=== PATIENT | female | born 1955 | race Caucasian/White ===

== ENCOUNTER → 2024-11-02 | Outpatient (CLI) | payer MEDICARE, OTHER ==
--- NOTE | 2024-11-02 16:15 | PE ---
EXAMINATION TYPE: PET CT fusion skull to thigh DATE OF EXAM: 11/02/2024 CLINICAL HISTORY: Abnormal findings lung field, solitary pulmonary nodule. TECHNIQUE: Following the intravenous administration of 12.2 mCi of F-18 FDG, whole body images are performed from the skull base to the midthigh. Images are reviewed on the computer in the coronal, a xial, and sagittal planes. Reconstructed rotating images are created on independent workstation and reviewed on the computer. A non-contrast CT is performed in conjunction with the PET scan. Blood gl ucose level equals 87 Initial study. COMPARISON: None. FINDINGS: SKULL BASE AND NECK: No areas of abnormal hypermetabolic uptake. CHEST, MEDIASTINUM, AND HILAR REGION: There is 1.1 cm spiculated nodule or nodular consolidation with a central focus of air in the right upper lobe axial image 70 with abnormal hypermetabolic uptake, m ax SUV is 8.3. No additional areas of abnormal hypermetabolic uptake. ABDOMEN AND PELVIS: Normal excretion is present. No areas of suspicious hypermetabolic uptake. No hyp ermetabolic adrenal masses. OSSEOUS STRUCTURES: No areas of suspicious abnormal hypermetabolic uptake. OTHER CT: [id number] peripheral calcified plaque bilateral carotid bulb level is seen. Coronary artery calcification is present. There is moderate to severe calcified plaque of the infrarenal abdominal aorta. There is moderate deg enerative change of both hip joints. IMPRESSION: There is 1.1 cm spiculated nodule or nodular consolidation with central tiny focus of air with abnormal hypermetabolic uptake could reflect acute infectious process but a malignant etiology cannot be excluded. Advise clinical correlation and pulmonology referral to further evaluate. [facility], , 11/02/2024 4:12 PM
== END | disposition home or self-care (01) ==
LOC: RADPETMAIN 09:01
PROVIDERS: ATTEND Family Medicine
DX: R91.8 Other nonspecific abnormal finding of lung field (principal)
CPT/HCPCS: 78815; A9552

== ENCOUNTER → 2024-11-16 | Outpatient (CLI) | payer MEDICARE, OTHER ==
--- NOTE | 2024-11-16 12:43 | MM ---
Reason for Exam: Screening (asymptomatic). Indicated Problems: Pain of the left side (Global) for 1 Year(s). Patient History: Menarche at age 14. First Full-Term at age 22. Postmenopausal. Risk Values: Maryanne 5 year model risk: 1.5%. NCI Lifetime model risk: 5.0%. Prior Study Comparison: No prior studies available for comparison. Tissue Density: The breasts are heterogeneously dense, which may obscure small masses. Findings: Analyzed By CAD. No significant mass, suspicious microcalcification, or other discrete abnormality is seen. Overall Assessment: Negative, BI-RAD 1 Management: Screening Mammogram of both breasts in 1 year. Patient should continue monthly self-breast exams. A clinical breast exam by your physician is recommended on an annual basis. This exam should not preclude additional follow-up of suspicious palpable abnormalities. Note on Maryanne scores and lifetime risk: 1. A Maryanne score greater than 3% is considered moderate risk. If this is the case, consider specialist referral to assess eligibility for a risk reducing agent. 2. If overall lifetime risk for the development of breast cancer is 20% or higher, the patient may qualify for future screening with alternating mammogram and breast MRI. [facility], , 11/16/2024 12:40 PM. Electronically signed and approved by: Uyen Wells M.D. Radiologist
== END | disposition home or self-care (01) ==
LOC: RADMAMWWP 10:17
PROVIDERS: ATTEND Family Medicine
DX: Z12.31 Encounter for screening mammogram for malignant neoplasm of breast (principal); R92.333 Mammographic heterogeneous density, bilateral breasts; Z78.0 Asymptomatic menopausal state
CPT/HCPCS: 77063; 77067

== ENCOUNTER 2025-02-28 10:50 | Day surgery (SDC) | payer MEDICARE, OTHER ==
[2025-02-27 09:22] VITALS: BMI 28.3
[~2025-02-28 10:50] MED LIST: LACTATED RINGERS 1,000 ML IV SCH
[2025-02-28] MEDS: IV FLUID CONTINUATION 1,000 ML IV ONE (11:45)
--- NOTE | 2025-02-28 11:53 | CT ---
EXAMINATION TYPE: CT Chest wo ION protocol DATE OF EXAM: 02/28/2025 COMPARISON: PET CT 11/02/2024, chest radiograph 02/13/2025, CT thorax 02/05/2025 CLINICAL INDICATION: Female, 69 years old with history of ION BRONCH; [facility], Pre bronchoscopy TECHNIQUE: CT scan of the thorax is performed without IV contrast. CT DLP: 240.[address] CTDI: 6.40 mGy Automated exposure control for dose reduction was used. FINDINGS: LUNGS: Biapical pleural-parenchymal scarring. Redemonstration of right upper lobe cavitary spiculated lesion measuring up to 1.4 cm. The wall measures up to 2 mm in thickness. Marginal increased cavitar y portion of the lesion from prior exam. No pleural effusion, pneumothorax, focal consolidation. The tracheobronchial tree is patent. MEDIASTINUM: Lack of IV contrast is noted to limit evaluation for mediastinal and especially hilar ad enopathy. There are no definitive greater than 1 cm hilar or mediastinal lymph nodes. Mild to moderat e atherosclerotic calcification of the aorta and its branches. HEART: Size within normal limits.Trace anterior pericardial effusion. Mild coronary artery calcificat ions present. OTHER: No additional significant abnormality is seen. Mild multilevel degenerative disease. No aggre ssive osseous lesion. Small hiatal hernia. IMPRESSION: Redemonstration of a right upper lobe spiculated cavitary lesion measuring up to 1.4 cm. [facility], , 02/28/2025 11:51 AM
[2025-02-28] MEDS: ONDANSETRON 4 MG/2 ML VIAL IVP STA (11:58)
[2025-02-28] MEDS: LACTATED RINGERS 1,000 ML IV SCH (11:58)
[2025-02-28] MEDS: DEXAMETHASONE SOD PHOSPHATE 4 MG/ML 1 ML VIAL IVP STA (11:59)
[2025-02-28] MEDS ORDERED: PROPOFOL 10 MG/ML 20 ML VIAL IV ONE (12:46)
[2025-02-28] MEDS ORDERED: SUCCINYLCHOLINE CHLORIDE 200 MG/10 ML VIAL IV ONE (12:46)
[2025-02-28] MEDS ORDERED: ROCURONIUM 10 MG/ML (5 ML VIAL) IV ONE (12:46)
[2025-02-28] MEDS ORDERED: PHENYLEPHRINE 10 MG/ML VIAL ONE (12:46)
[2025-02-28] MEDS ORDERED: LIDOCAINE 1% INJ 10MG/ML (20 ML MDV) ONE (12:46)
[2025-02-28] MEDS ORDERED: fentaNYL (PF) 50 MCG/ML 2 ML AMP ONE (12:46)
[2025-02-28] MEDS ORDERED: GLYCOPYRROLATE 0.2 MG/ML 2 ML VIAL ONE (12:46)
[2025-02-28] MEDS ORDERED: NEOSTIGMINE 1 MG/ML 10 ML VIAL ONE (12:46)
--- NOTE | 2025-02-28 13:44 | FL ---
EXAMINATION TYPE: FL bronchoscopy Intraoperative/procedural fluoroscopic services were provided. CLINICAL INDICATION:Female, 69 years old with history of BRONCHOSCOPY WITH ION ROBOT; , [facility] FINDINGS: Fluoroscopic imaging for right upper lung bronchoscopy demonstrated. No radiographic evidence for com plication. Total fluoroscopy time is 1.00 min. DAP: 1.9872 Gycm2 Please see the operative/procedural note for further details. [facility], , 02/28/2025 1:42 PM
--- NOTE | 2025-02-28 13:53 | P.PCN ---
Date of Procedure: 02/28/25 Operative Findings: Preoperative Diagnosis: Right upper lobe pulmonary nodule measuring 14 mm cacitating nodule, PET Avid Postoperative Diagnosis: Right upper lobe pulmonary nodule 14 mm Procedure(s) Performed: Flexible bronchoscopy Robotic-assisted bronchoscopy and addition to radial ultrasound evaluation of right upper lobe pulmonary nodule Robotic-assisted transbronchial biopsies, transbronchial needle aspirate of the right upper lobe pulmonary nodule Robotic assisted bronchioloalveolar lavage of the of the right upper lobe Endobronchial ultrasound Anesthesia: GETA Surgeon: Juanis Virk Estimated Blood Loss (ml): 0 Pathology: other Condition: stable Disposition: same day Operative Findings: A physical exam was performed. Informed consent was obtained from the patient after explaining all the risks (pneumothorax, life threatening bleeding, infection and adverse effects due to medications), benefits and alternatives to the procedure which the patient appeared to understand and so stated. The patient was connected to the monitoring devices. General anesthesia was induced and the patient was intubated by anesthesia. A final timeout was performed and the procedure confirmed by the attending staff bronchoscopist. The bronchoscope was inserted and the airway examined. The trachea was within normal limits. Kathryn was sharp. Examination of the right side included right mainstem bronchus, the right upper lobe bronchus, bronchus intermedius, right middle lobe and right lower lobe bronchus and the various 10 segments on the right. The findings on the right were essentially within normal limits. Examination of the left side showed a normal left mainstem bronchus. The left upper lobe bronchus and left lower lobe bronchus and the various 8 segments on the left were essentially within normal limits. The flexible bronchoscope was removed and the robotic bronchoscope was inserted. Registration was completed. I next guided the robotic bronchoscope using the navigation system into the right upper lobe. Once in proper position, the bronchoscope was frozen. The radial EBUS probe was placed through the bronchoscope and confirmed abnormal u/s images vs normal lung. U/S evaluation was then used to reconfirm location. A transbronchial needle aspirate of the right upper lobe nodule was done using a 23-gauge needle. Initially, 2 passes were taken and the samples were examined and evaluated by pathology at the bedside. Following this rapid onsite cytology evaluation and confirmation of sample adequacy, 3 additional transbronchial needle aspirates were done and no samples was placed in the cellblock. Following that, a forceps was used to perform transbronchial biopsies of the right upper lobe pulmonary nodule. A forceps was introduced through working channel and extended the appropriate distance and to transbronchial biopsies were performed using fluoroscopic guidance. The u/s probe was then reinserted to confirm location. When confirmed this process was repeated for a total of 5- 6 transbronchial biopsies. Following that, a bronchioloalveolar lavage of the right upper lobe was also done. A total of 40 cc of fluid was infused and 10 cc was aspirated and the aspirate was blood tinged. No clots. Fluoroscopic check for pneumothorax was negative upon completion of the procedure. There was 0 ml blood loss with the procedure. The robotic catheter was removed. The flexible bronchoscope was inserted. Therapeutic airway suctioning was done. There was no evidence of an endobronchial bleed. The flexible bronchoscope was removed. Endobronchial ultrasound was used to evaluate for mediastinal lymphadenopathy. No significant or pathologic lymph nodes identified upon inspection of various mediastinal space including 2R , 4R, 2L, 4L, 10R, 11R, and station 7 and 10L. The patient was extubated and the patient was transferred to recovery in stable condition. FINDINGS: 1.The airways appeared normal, no significant respiratory secretions 2 Successful navigation, ultrasonographic identification, and biopsies of right upper lobe pulmonary nodule 3.The the radial ultrasound view was eccentric 4. No mediastinal lymphadenopathy based on a endobronchial ultrasound evaluation of the mediastinal stations. RECOMMENDATIONS: Await pathology and cytology results The referring physician will be alerted to the results when available. The patient was advised to follow up with the referring physician with the biopsy results
[2025-02-28 14:01] VITALS: TEMP 97.3
--- NOTE | 2025-02-28 14:20 | XR ---
EXAMINATION TYPE: XR chest 1V DATE OF EXAM: 02/28/2025 2:14 PM COMPARISON: Fluoroscopic images of the same day, CT chest of the same date, chest radiograph TECHNIQUE: XR chest 1V Portable AP radiograph of the chest. CLINICAL INDICATION:Female, 69 years old with history of post bx; FINDINGS: Lungs/Pleura: No pneumothorax or pleural effusion. Development of right upper lung patchy airspace op acities. Pulmonary vascularity: Unremarkable. Heart/mediastinum: Cardiomediastinal silhouette is unremarkable. Atherosclerotic calcifications are seen in the aorta. Musculoskeletal: No acute osseous pathology. IMPRESSION: Development of right upper lung patchy airspace opacities likely related to postbiopsy changes from s mall hemorrhage/atelectasis. No pneumothorax. [facility], , 02/28/2025 2:18 PM
[2025-02-28 15:11] VITALS: BP 124/67; PULSE 65; RESP 18
== END 2025-02-28 15:25 | disposition home or self-care (01) ==
LOC: ORWHC2ENDO 10:50
PROVIDERS: ATTEND Internal Medicine Critical Care Medicine
DX: R91.1 Solitary pulmonary nodule (principal); J44.9 Chronic obstructive pulmonary disease, unspecified; I10 Essential (primary) hypertension; E78.5 Hyperlipidemia, unspecified; R56.9 Unspecified convulsions; K21.9 Gastro-esophageal reflux disease without esophagitis; G43.C0 Periodic headache syndromes in child or adult, not intractable; Z79.899 Other long term (current) drug therapy; Z87.891 Personal history of nicotine dependence; Z80.1 Family history of malignant neoplasm of trachea, bronchus and lung
CPT/HCPCS: 87798 ×3; 87496; 87498; 87529; 88108; 88305; 88342; 87502; 87634; 88341; 87070; 87205; 87116; 87102; 87206; 87635; 71045; 71250; 31628; 31629; 31624; 31627; 31654; J0330; J1100; J2710; J2405; J2003; J3010; J2704; J2371; J1596

== ENCOUNTER → 2025-04-18 | Outpatient (CLI) | payer MEDICARE, OTHER ==
[2025-04-18 10:39] LABS: INR 0.9 (<1.2); Partial Thromboplastin Time 22.3 sec (22.0-30.0); Prothrombin Time 10.5 sec (10.0-12.5)
[2025-04-18 15:07] LABS: Basophils # (A) 0.11 X 10*3/uL (0.00-0.10); Basophils % (A) 0.9 %; Eosinophils % (A) 2.5 %; HGB 13.8 g/dL (12.0-15.0); Lymphocytes # (A) 3.66 X 10*3/uL (0.90-5.00); Lymphocytes % (A) 30.2 %; MCH 30.3 pg (27.0-32.0); MCHC 32.9 g/dL (32.0-37.0); MCV 92.1 FL (80.0-97.0); Mean Platelet Volume 9.9 FL (9.5-12.2); Monocytes # (A) 0.84 X 10*3/uL (0.20-1.00); Monocytes % (A) 6.9 %; NRBC Per 100 WBC 0 X 10*3/uL (0.00-0.01); Neutrophils # (A) 7.13 X 10*3/uL (1.80-7.70); Platelet Count 319 X 10*3/uL (140-440); RBC 4.56 X 10*6/uL (4.10-5.20)
[2025-04-18 15:27] LABS: Blood Urea Nitrogen 11.7 mg/dL (9.0-27.0); Carbon Dioxide 25.4 mmol/L (21.6-31.8); Chloride 105 mmol/L (96-109); Glucose 106 mg/dL (70-110); Potassium 4.6 mmol/L (3.5-5.5); Sodium 142 mmol/L (135-145)
[2025-04-19 15:50] LABS: Appearance,Urine Clear (Clear); Bilirubin,Urine Negative (Negative); Blood,Urine Negative (Negative); Color,Urine Yellow (Yellow); Ketones,Urine Negative (Negative); Nitrite,Urine Negative (Negative); PH, Urine 7.5; Specific Gravity,Urine 1.012 (1.001-1.030); Urobilinogen,Urine 0.2 E.U./DL
== END | disposition home or self-care (01) ==
LOC: LABWHC1 09:57
PROVIDERS: ATTEND Thoracic Surgery (Cardiothoracic Vascular Surgery)
DX: C34.11 Malignant neoplasm of upper lobe, right bronchus or lung (principal)
CPT/HCPCS: 80051; 81003; 82565; 82947; 84520; 85025; 85610; 85730; 86850; 86900; 86901; 87086

== ENCOUNTER 2025-04-23 07:30 | Inpatient (IN) | payer MEDICARE, OTHER ==
[~2025-04-23 07:30] MED LIST changes: +HYDROmorphone 0.5 MG/0.5 ML SYRINGE IVP PRN; -LACTATED RINGERS 1,000 ML IV SCH; +fentaNYL (PF) 50 MCG/ML 2 ML AMP IV PRN
[2025-04-23] MEDS: ONDANSETRON 4 MG/2 ML VIAL IVP ONE (10:52)
[2025-04-23] MEDS: IV FLUID CONTINUATION 1,000 ML IV ONE ×2 (11:05)
[2025-04-23 11:15] LABS: Glucose,Whole Blood 108 mg/dL (70-110)
[2025-04-23] MEDS: MIDAZOLAM 2 MG/2 ML VIAL IV ONE (12:06)
--- NOTE | 2025-04-23 13:47 | P.ANPRN ---
Procedure Note - Anesthesia - Nerve Block Performed Right Erector Spinae Single Time Out Performed: Yes Date of Procedure: 04/23/25 Procedure Start Time: 12:05 Procedure Stop Time: 12:12 Location of Patient: PreOp Indication: Acute Post-Operative Pain, Requested by Surgeon Sedation Type: Sedate with meaningful contact maintained Preparation: Sterile Prep Position: Sitting Needle Types: Pajunk Needle Gauge: 21 Ultrasound used to visualize needle placement: Yes Ultrasound used to observe medication spread: Yes Injectate: 0.5% Ropivacaine (see comment for volume) (20 mL +10 mL of normal saline +4 mg dexamethasone) Blood Aspirated: No Pain Paresthesia on Injection Noted: No Resistance on Injection: Normal Image Stored and Saved: Yes Events: Uneventful and Well Tolerated
[2025-04-23] MEDS: BUPIVACAINE (PF) 0.25% 30 ML VIAL SQ ONE ×2 (14:09)
[2025-04-23] MEDS: LIDOCAINE 1%-EPI 1:100,000 20 ML VIAL SQ ONE ×2 (14:10)
[2025-04-23] MEDS: LACTATED RINGERS 1,000 ML IV ONE (14:50)
[2025-04-23] MEDS ORDERED: GLYCOPYRROLATE 0.2 MG/ML 2 ML VIAL ONE (14:57)
[2025-04-23] MEDS ORDERED: DEXAMETHASONE SOD PHOSPHATE 4 MG/ML 1 ML VIAL ONE (14:57)
[2025-04-23] MEDS ORDERED: NEOSTIGMINE 1 MG/ML 10 ML VIAL ONE (14:57)
[2025-04-23] MEDS ORDERED: ROPIVACAINE 5 MG/ML 30 ML VIAL ONE (14:57)
[2025-04-23] MEDS ORDERED: PROPOFOL 10 MG/ML 20 ML VIAL IV ONE (14:57)
[2025-04-23] MEDS ORDERED: HYDROmorphone (PF) 1 MG/ML ONE (14:57)
[2025-04-23] MEDS ORDERED: LIDOCAINE 1% INJ 10MG/ML (20 ML MDV) ONE (14:57)
[2025-04-23] MEDS ORDERED: ROCURONIUM 10 MG/ML (5 ML VIAL) IV ONE (14:57)
[2025-04-23] MEDS ORDERED: DEXAMETHASONE SOD PHOSPHATE 10 MG/ML 1 ML VIAL ONE (14:57)
[2025-04-23] MEDS ORDERED: ONDANSETRON 4 MG/2 ML VIAL ONE (14:57)
[2025-04-23] MEDS ORDERED: ACETAMINOPHEN IV (For NPO) 1,000 MG/100 ML VIAL ONE (14:57)
[2025-04-23] MEDS ORDERED: MIDAZOLAM 2 MG/2 ML VIAL ONE (14:57)
[2025-04-23] MEDS ORDERED: fentaNYL (PF) 50 MCG/ML 2 ML AMP ONE (14:57)
[2025-04-23] MEDS ORDERED: KETAMINE HCL IN 0.9 % NACL 50 MG/5 ML SYRINGE ONE (14:57)
[2025-04-23] MEDS ORDERED: SODIUM CHLORIDE 0.9% (PF) 10 ML VIAL ONE (14:57)
[2025-04-23] MEDS ORDERED: ALBUTEROL HFA INHALER INHALATION ONE (14:57)
[2025-04-23] MEDS ORDERED: PHENYLEPHRINE-0.9% NACL SYG 1,000 MCG/10 ML SYRINGE ONE (14:57)
[2025-04-23] MEDS ORDERED: LABETALOL 5 MG/ML VIAL MDV ONE (14:57)
[2025-04-23] MEDS ORDERED: SUCCINYLCHOLINE CHLORIDE 200 MG/10 ML VIAL IV ONE (14:57)
--- NOTE | 2025-04-23 17:43 | XR ---
EXAMINATION TYPE: XR chest 1V portable DATE OF EXAM: 04/23/2025 5:30 PM COMPARISON: 02/28/2025 CLINICAL INDICATION: Female, 69 years old with history of post lobectomy, TECHNIQUE: XR chest 1V portable views of the chest are obtained. FINDINGS: Postoperative changes right-sided partial lobectomy with right apical pneumothorax and right chest tu be. Right suprahilar density noted. The heart is stable. Hilar and mediastinal structures are within normal limits. Degenerative changes are seen of the dorsal spine. IMPRESSION: 1. Postoperative changes right-sided partial lobectomy with right apical pneumothorax and right ches t tube. Right suprahilar density noted. [facility], , 04/23/2025 5:40 PM
--- NOTE | 2025-04-23 17:52 | P.OP ---
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 Robotic assisted thoracoscopic right upper lobectomy with mediastinal lymph node dissection 2. 2 level intercostal nerve block Implants: None Anesthesia: JESSICAA Surgeon: Lul Paniagua Estimated Blood Loss (ml): 25 Pathology: other (1. Right upper lobe specimen 2. Level 9, 8, 7, 4, 2, 10, 11, and 12 lymph nodes) Condition: stable Disposition: PACU Indications for Procedure: Patient has a biopsy-proven cavitary right upper lobe mass with reasonable pulmonary function and no evidence of positive lymph nodes on PET scan. Operative Findings: 1. Relatively complete major and minor fissures 2. Benign appearing lymph nodes 3. Mass palpable within specimen Description of Procedure: After consent was obtained, the patient was brought to the operating room where she underwent general by dual-lumen endotracheal tube anesthesia. There was bronchoscopic confirmation but it was an accurate and the main gorge was misidentified by anesthesia as the division between the bronchus intermedius and the right upper lobe. The bronchial lumen and balloon were lodged in the bronchus intermedius and this was later found out with my investigation after the lung was still ventilating upon entry into the chest causing an injury to the lung on entry. The patient was intermittently desaturating while we positioned, prepped and draped her. We then observed a timeout whereby the patient, the procedure, the site, the side, antibiotic delivery, hospital personnel and films up in the room were all verified. We then proceeded to marivel and inject her for port placement. We injected first for the camera port site and once the injection was complete and incised her with a 15 blade knife and used a blunt clamp to gain access to the chest cavity. Once access was gained, we used the 8 mm cannula with a noncutting trocar. This was placed very superficially into the chest and she was attached to insufflation at 7 cm water pressure. We then placed the camera and immediately noticed that the tip of the cannula was intraparenchymal and we immediately withdrew that finding the chest space. We looked later for the defect and were unable to find it to seal it off with a small staple line. We then used the scope to place the posterior and anterior 12 mm ports in the same rib space under direct vision of the scope. We also used the scope to verify the same rib space and that we were injecting with local anesthetic so as to cause an intercostal nerve block in the ninth intercostal space. We then replaced the camera to the posterior most port and placed our anteriormost port in the ninth rib space. We use local anesthetic for that as well and then use local anesthetic at the 10th rib space near the diaphragmatic reflection/insertion for a second level intercostal nerve block. We then made incision and inserted our 15 mm port under direct vision of the s cope. We then brought in the robot and docked it with the camera port first allowing us to target for optimal positioning prior to attaching the other 2 arms and inserting instruments under direct vision of the scope. We began by inspecting the fissure and it was found to be mostly complete. I then began immediately exposing the inferior pulmonary ligament and we held the inferior lobe under traction allowing me to dissect the inferior pulmonary ligament and take specimens for level 8 and 9 lymph nodes. These were passed as specimen as we continued posteriorly up the mediastinum and we are able to do our hilar dissection locating multiple level 7 lymph nodes. We also located a level 10 lymph node and took that a specimen. We were then able to gain circumferential control around the upper lobe bronchus and passed a vessel loop. We then pushed the lung posteriorly and began on her anterior dissection. We were able to dissect out the vein trunk to the upper lobe leaving the venous supply to the middle lobe intact. We are then able to take that upper lobe vein without any difficulty. Once that was accomplished we proceeded on to dissect out a level 11 lymph node and a level 10 lymph node giving us access to the first 2 branches of the pulmonary artery to the upper lobe. These are taken individually with white robotic stapling loads and once those were free we were able to then push the lung back anteriorly and approach the upper lobe bronchus from the posterior direction. We used our vessel loop already in place and passed a 30 mm green stapling load giving a test breath to assure patency of the middle and lower lobes bronchi prior to stapling and dividing the bronchus. We then used multiple firings of the 30 mm blue stapling load to amputate the upper lobe from the lower and middle lobes leaving them intact. We then proceeded on to dissected out the level 4 and level 2 lymph nodes and of note prior to developing the fissure we did go ahead and dissected out a level 12 and 13 lymph nodes that were completely exposed at the nearly complete fissure. Once these were removed we are able then to proceed on and complete the fissure. Once that was complete, we removed all foreign bodies and then placed the lobe in a catch bag removing it through a slightly enlarged assistance port site. We palpated the mass within the lobe itself and then passed that a specimen. We then proceeded on to dry up the staple line and assure there was hemostasis prior to placing an anterior and posterior chest tube with a 20 Tristanian straight thoracic catheter anteriorly and a 19 Tristanian Saúl drain posteriorly. These were both fixed in place with 0 Ethibond sutures and we then closed the incisions around each drain deep with a 2-0 Vicryl suture and the skin with 4-0 Monocryl sutures. The other 2 incisions were closed deep with a 20 buried interrupted Vicryl suture and the skin with a 40 buried interrupted Monocryl suture. He was dressed with skin glue to all incisions and 2 by twos/4 x 4's and tape around the chest tubes that were hooked to a Y and then to a Pleur-evac container on -20 suction. Patient initially had a small intermittent airleak on positive pressure ventilation and was then transferred in good team addition to PACU. Her family was notified regarding the procedure itself, findings and the patient's condition.
[2025-04-23] MEDS ORDERED: IPRATROPIUM-ALBUTEROL 3 ML NEB IH PRN (18:54)
[2025-04-23] MEDS: KETOROLAC 15 MG/ML 1 ML VIAL IVP SCH (19:11)
[2025-04-23] MEDS: DEXTROSE 5%-0.45% NACL 1,000 ML IV SCH (19:14)
[2025-04-23] MEDS: traMADol 50 MG TAB PO PRN (20:51)
[2025-04-23] MEDS: SENNOSIDES-DOCUSATE SODIUM 1 EACH TAB PO SCH (20:51)
[2025-04-23] MEDS: DEXAMETHASONE SOD PHOSPHATE 4 MG/ML 1 ML VIAL IV ONE (21:17)
[2025-04-23] MEDS: LACTATED RINGERS 1,000 ML IV SCH (21:18)
[2025-04-23] MEDS: IPRATROPIUM-ALBUTEROL 3 ML NEB IH SCH (22:41)
[2025-04-24] MEDS: HEPARIN SODIUM,PORCINE 5,000 UNIT/ML 1 ML VIAL SQ SCH (00:04)
[2025-04-24] MEDS: PANTOPRAZOLE 40 MG TABLET PO SCH (05:52)
[2025-04-24 07:49] LABS: Basophils # (A) 0.02 10*3/uL (0.00-0.10); Basophils % (A) 0.1 %; Eosinophils # (A) 0.00 10*3/uL (0.04-0.35); Eosinophils % (A) 0.0 %; HCT 37.8 % (37.2-46.3); HGB 12.6 g/dL (12.0-15.0); Lymphocytes # (A) 1.45 10*3/uL (0.90-5.00); Lymphocytes % (A) 10.2 %; MCH 30.3 pg (27.0-32.0); MCHC 33.3 g/dL (32.0-37.0); MCV 90.9 fL (80.0-97.0); Monocytes # (A) 0.82 10*3/uL (0.20-1.00); Monocytes % (A) 5.8 %; Neutrophils # (A) 11.80 10*3/uL (1.80-7.70); Neutrophils % (A) 83.5 %; Platelet Count 274 10*3/uL (140-440); RBC 4.16 10*6/uL (4.10-5.20); RDW 11.6 % (11.5-14.5); WBC 14.15 10*3/uL (4.50-10.00)
--- NOTE | 2025-04-24 07:54 | P.CNPUL ---
History of Present Illness Consult date: 04/24/25 Requesting physician: Alesai Holt Reason for consult: other (Post thorascopic surgery) History of present illness: Patient is a 69-year-old female with past medical history significant for right upper lobe pulmonary nodule, COPD, and tobacco smoker. Previously, underwent robotic assisted bronchoscopy with transbronchial biopsies performed by Dr. Virk back on 02/28/2025. 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 Patient was referred to cardiothoracic surgery and did undergo robotic assisted thorascopic right upper lobectomy with mediastinal lymph node dissection yesterday. No perioperative complications were reported. Postoperative chest x-ray showing a small residual right apical pneumothorax and additional postsurgical changes with two right chest tube in place. She is being seen on the cardiac stepdown unit following her procedure. She is resting comfortably on room air in the bedside recliner. Right-sided chest tube hooked to an atrium with -20 cm H2O. continues to have intermittent air leaking. Approximately 250 cc of serosanguineous output in the collection chamber. Incentive spirometer is at bedside, achieving approximately 500 cc. She is on room air. Denies any shortness of breath. Endorsing some postoperative right-sided chest pain, but adequately controlled with current analgesics Review of Systems REVIEW OF SYSTEMS: CONSTITUTIONAL: Denies any recent significant weight loss or weight gain. EYES: Denies change in vision. EARS, NOSE, MOUTH, THROAT: Denies headaches, denies sore throat. CARDIOVASCULAR: Denies chest pain, palpitations or syncopal episodes. RESPIRATORY: Denies shortness of breath, cough, congestion or hemoptysis. GASTROINTESTINAL: Denies change in appetite, abdominal pain, nausea and vomiting, or diarrhea GENITOURINARY: Denies hematuria, denies infections. MUSKULOSKELETAL: Denies pain, denies swelling. INTEGUMENTARY: Denies rash, denies eczema. NEUROLOGICAL: Denies recent memory loss, no recent seizure activity. PSYCHIATRIC: Denies anxiety, denies depression. HEMATOLOGIC/LYMPHATIC: Denies anemia, denies enlarged lymph node Past Medical History Past Medical History: COPD, Eye Disorder, Hyperlipidemia, Hypertension, Seizure Disorder Additional Past Medical History / Comment(s): cancerous lung nodule rt upper lobe, MIGRAINES,HAD 1 SEIZURE SEP 2024-none since,BEGINNING CATARACTS History of Any Multi-Drug Resistant Organisms: None Reported Past Surgical History: Ear Surgery, Orthopedic Surgery Additional Past Surgical History / Comment(s): bronchoscopy w/ bx, EAR SX CHILD, LUMPECTOMY UNDER LT ARM-BENIGN, ORIF LT WRIST Past Anesthesia/Blood Transfusion Reactions: No Reported Reaction Additional Past Anesthesia/Blood Transfusion Reaction / Comment(s): no hx blood transfusions Smoking Status: Former smoker, Vaper - Past Family History Mother Family Medical History: No Reported History Father Family Medical History: Myocardial Infarction ([place]) Medications and Allergies Home Medications Medication Instructions Recorded Confirmed Type Aspirin EC [Ecotrin Low Dose] 81 mg PO DAILY 02/27/25 04/23/25 History Aspirin/Acetaminophen/Caffeine 1 each PO DAILY PRN 02/27/25 04/17/25 History [Excedrin Migraine Caplet] Rosuvastatin [Crestor] 20 mg PO DAILY 02/27/25 04/23/25 History amLODIPine [Norvasc] 2.5 mg PO QAM 02/27/25 04/23/25 History levETIRAcetam [Keppra] 375 mg PO Q12HR 02/27/25 04/23/25 History Albuterol Inhaler [Ventolin Hfa 2 puff INHALATION Q4H PRN 04/17/25 04/23/25 History Inhaler] Calcium Carbonate/Vitamin D3 1 each PO DAILY 04/17/25 04/17/25 History [Calcium 500-Vit D3 10 Mcg (400 IU) Chew Tb] Multivit-Minerals/Folic Acid 80 mcg PO DAILY 04/17/25 04/17/25 History [Centrum Women 50 Plus Gummy] Allergies Allergy/AdvReac Type Severity Reaction Status Date / Time No Known Allergies Allergy Verified 04/23/25 10:26 Physical Exam Vitals: Vital Signs Temp Pulse Pulse Resp BP BP BP 04/24/25 04:40 98.1 F 99 18 146/78 04/24/25 02:30 20 04/24/25 02:10 20 04/23/25 23:35 103 H 156/95 04/23/25 23:05 95 133/83 04/23/25 22:35 95 124/79 04/23/25 22:05 94 122/80 04/23/25 21:37 96 20 140/83 04/23/25 21:24 04/23/25 20:52 98.1 F 96 18 145/84 04/23/25 20:26 95 18 148/89 04/23/25 19:51 92 16 127/77 04/23/25 19:36 91 130/86 04/23/25 19:21 92 22 137/81 04/23/25 19:05 89 20 120/76 04/23/25 18:50 89 20 129/80 04/23/25 18:35 98.2 F 92 20 134/77 04/23/25 17:45 90 16 118/62 04/23/25 17:30 89 16 136/73 04/23/25 17:15 90 14 121/60 137/79 04/23/25 17:00 89 14 133/66 138/88 04/23/25 16:45 91 16 137/68 147/80 04/23/25 16:37 97.2 F L 90 15 146/82 04/23/25 12:20 85 16 110/62 04/23/25 12:15 87 16 106/62 04/23/25 12:10 86 16 116/80 04/23/25 12:05 91 16 124/59 04/23/25 10:26 97.2 F L 101 H 16 162/88 Pulse Ox 04/24/25 04:40 93 L 04/24/25 02:30 95 04/24/25 02:10 97 04/23/25 23:35 97 04/23/25 23:05 96 04/23/25 22:35 96 04/23/25 22:05 97 04/23/25 21:37 96 04/23/25 21:24 95 04/23/25 20:52 98 04/23/25 20:26 89 L 04/23/25 19:51 98 04/23/25 19:36 98 04/23/25 19:21 98 04/23/25 19:05 97 04/23/25 18:50 98 04/23/25 18:35 97 04/23/25 17:45 98 04/23/25 17:30 96 04/23/25 17:15 96 04/23/25 17:00 97 04/23/25 16:45 99 04/23/25 16:37 98 04/23/25 12:20 97 04/23/25 12:15 97 04/23/25 12:10 96 04/23/25 12:05 96 04/23/25 10:26 97 Intake and Output 04/23/25 04/23/25 04/24/25 14:59 22:59 06:59 Intake Total 1650 660 560 Output Total 1024 1200 Balance 1650 -364 -640 Intake: IV 1650 660 Invasive Line 1 10 Oral 560 Output: Chest Tube Drainage 94 100 Chest Tube Right Lateral 94 100 Chest Urine 910 1100 Estimated Blood Loss 20 Other: Voiding Method Indwelling Catheter Weight 70.6 kg 72 kg GENERAL EXAM: Alert, 69-year-old female, sitting in bedside recliner, comfortable in no apparent distress. HEAD: Normocephalic and atraumatic EYES: Normal reaction of pupils, equal size. NOSE: Clear with pink turbinates. THROAT: No erythema or exudates. NECK: No masses, no JVD. CHEST: Right-sided thoracotomy incision with two chest tubes attached to atrium and suction at -20 cm H2O. Intermittent air leaking. Approximately 250 cc of serosanguineous output in collection chamber LUNGS: Equal air entry with no crackles, wheeze, rhonchi or dullness. On room air. No conversational dyspnea or accessory muscle use.. CVS: S1 and S2 normal with no audible murmur, regular rhythm. No extra heart sounds ABDOMEN: No hepatosplenomegaly, active bowel sounds, no guarding or rigidity. SPINE: No scoliosis or deformity SKIN: No rashes CENTRAL NERVOUS SYSTEM: No focal deficits, tone is normal in all 4 extremities. EXTREMITIES: There is no peripheral edema, clubbing, or cyanosis. Peripheral pulses are intact. 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 Machine Keyboard Operator ID Mono Davalos 04/23/25 11:13 - Diagnostic Findings Chest x-ray: image reviewed Assessment and Plan Assessment: Status postoperative day #1 following a robotic assisted thorascopic right upper lobectomy with mediastinal lymph node dissection History of right upper lobe spiculated cavitary 1.4 cm lung nodule, did undergo robotic assisted bronchoscopy with transbronchial biopsies on 02/28/2025, pathology positive for moderately differentiated squamous cell carcinoma Chronic obstructive pulmonary disease, stable Chronic ongoing nicotine dependence, still vapes History of seizures Hypertension History of hyperlipidemia Plan: Patient currently on room air Follow-up postoperative chest x-ray showing postoperative changes with residual right-sided pneumothorax and chest tubes in place Right-sided chest tubes continue to be to suction -20 cmH20 Encourage incentive spirometer Continue DuoNebs Activity as to postoperative pain adequate controlled with current regimen of Ultram, Toradol, as needed Tylenol pathology pending We will continue to follow I have personally seen and examined the patient, performed the documentation and the assessment and plan as written. Number of minutes spent on the visit:20 Time with Patient: Greater than 30
[2025-04-24 08:07] LABS: African American GFR (CKD) >90 (>60 ml/min/1.73 sqM); Anion Gap 9 mmol/L; Blood Urea Nitrogen 16 mg/dL (7-17); Calcium 9.4 mg/dL (8.4-10.2); Carbon Dioxide 25 mmol/L (22-30); Chloride 106 mmol/L (98-107); Glucose 144 mg/dL (74-99); Non-African American GFR(CKD) 89 (>60 ml/min/1.73 sqM); Potassium 4.6 mmol/L (3.5-5.1); Sodium 140 mmol/L (137-145)
--- NOTE | 2025-04-24 08:23 | XR ---
EXAMINATION TYPE: XR chest 1V DATE OF EXAM: 04/24/2025 6:56 AM COMPARISON: 04/23/2025 CLINICAL INDICATION: Female, 69 years old with history of post lobectomy, FINDINGS: Right apical pneumothorax is unchanged. 2 chest tubes are noted. Postlobectomy changes present. No focal infiltrate seen. Stable appearance of the cardio-mediastinal structures at this time. No sizable effusion. IMPRESSION: 1. Right apical pneumothorax is unchanged. 2 chest tubes are noted. Postlobectomy changes present. [facility], , 04/24/2025 8:21 AM
--- NOTE | 2025-04-24 08:28 | P.PN ---
Subjective Progress Note Date: 04/24/25 Principal diagnosis: Right upper lobe spiculated cavitary 1.4 cm lung nodule, right upper lobe biopsy-proven non-small cell carcinoma. Past medical history significant for chronic obstructive pulmonary disease, hypertension, hyperlipidemia, seizure disorder and chronic ongoing tobacco dependence. POD #1 Robotic assisted thoracoscopic right upper lobectomy with mediastinal ly mph node dissection, and 2 level intercostal nerve block. The patient was seen and examined in follow-up today April 24, 2025 at her bedside on the third floor cardiac stepdown unit. She is currently sitting up to the bedside chair, is awake, alert, oriented x 3 and is in no acute apparent distress. She is complaining of some surgical type pain to her right chest tube insertion sites and to her right shoulder blade, currently rating her pain 8 out of 10 on the pain scale. Oxygen saturations are 97% on room air and she is achieving 500 to 750 mL on her incentive spirometry with encouragement. Remote telemetry showing normal sinus rhythm heart rate 99 bpm. Right pleural chest tubes remain in place to low continuous wall suction -20 cm H2O. Airleak present with expiration, talking and coughing. Draining thin serosanguineous drainage with 100 mL output in the last 8 hours and 210 mL output since surgery. Laboratory and chest x-ray results were reviewed. Surgical pathology results r grady pending. Objective - Vital Signs Vital signs: Vital Signs Temp 98.1 F 04/24/25 04:40 Pulse 99 04/24/25 04:40 Resp 18 04/24/25 04:40 BP 146/78 04/24/25 04:40 Pulse Ox 93 L 04/24/25 04:40 FiO2 Intake & Output 04/23/25 04/24/25 04/24/25 18:59 06:59 18:59 Intake Total 2300 570 Output Total 175 2049 Balance 2125 -1479 Weight 70.6 kg 72 kg Intake: IV 2300 10 Invasive Line 1 10 Oral 560 Output: Chest Tube Drainage 194 Chest Tube Right Lateral 194 Chest Urine 155 1855 Estimated Blood Loss 20 Other: Voiding Method Indwelling Catheter - Exam CONSTITUTIONAL: Appears comfortable, cooperative, no acute distress RESPIRATORY: Lungs sounds diminished bilaterally. Respirations even, nonlabored. Currently on room air with oxygen saturation 95%. Able to achieve 500-750 mL on incentive spirometry. Strong cough. CARDIOVASCULAR: S1, S2 present. Regular rate and rhythm, sinus rhythm on telemetry. Remote telemetry showing normal sinus rhythm heart rate 99 bpm. Palpable peripheral pulses bilaterally. No edema present. No calf pain or tenderness noted. SCDs present. GASTROINTESTINAL: Abdomen soft, nontender, nondistended. Active bowel sounds present 4 quadrants. Tolerating diet. Passing flatus. GENITOURINARY: Continues to void clear, yellow urine. Urine output 1100 mL in the last 8 hours. INTEGUMENTARY: Skin is warm and dry with evidence of good perfusion. Thoracic incision well approximated and covered with dry intact dressing. NEUROLOGIC: Cranial nerves II through XII intact. No focal deficits. MUSKULOSKELETAL: Able to move all extremities, strength equal bilaterally, gait normal PSYCHIATRIC: Alert and oriented to person place and time, appropriate affect, intact judgment and insight. INVASIVE LINES AND TUBES: Right pleural chest tubes present and connected to wall suction -20 cm H2O, airleak present with coughing, speaking in expiration. Right pleural chest tube with 100 mL serosanguineous drainage overnight, 210 mL last 24 hours. - Allied health notes Allied health notes reviewed: nursing - Labs CBC & Chem 7: 04/24/25 07:10 04/24/25 07:10 Labs: Abnormal Lab Results - Last 24 Hours (Table) 04/24/25 04/24/25 Range/Units 07:10 07:10 WBC 14.15 H (4.50-10.00) 10*3/uL Immature Gran # 0.06 H (0.00-0.04) 10*3/uL Neutrophils # 11.80 H (1.80-7.70) 10*3/uL Eosinophils # 0.00 L (0.04-0.35) 10*3/uL Glucose 144 H (74-99) mg/dL - Imaging and Cardiology Chest x-ray: report reviewed, image reviewed Assessment and Plan Assessment: Right upper lobe spiculated cavitary 1.4 cm lung nodule, right upper lobe biopsy-proven non-small cell carcinoma, status post robotic assisted thoracoscopic right upper lobectomy with mediastinal lymph node dissection Chronic obstructive pulmonary disease Hypertension Hyperlipidemia Seizure disorder Chronic ongoing tobacco dependence Plan: We will keep her right pleural chest tubes to low continuous wall suction -20 cm H2O. Continue to monitor for airleak resolution. Encourage use of incentive spirometry 10 times every hour while awake. Continue to monitor daily chest x-rays. Pain control per current as needed orders. Will add Robaxin for additional pain control. Pathology results remain pending, will continue to follow pathology results. Increase activity as tolerated. Out of bed for all meals. Home medications restarted, Norvasc, Keppra, statin, and low-dose aspirin. More recommendations to follow based on patient's clinical course. Time with Patient: Greater than 30
[2025-04-24] MEDS: MULTIVITAMINS, THERA 1 EACH TAB PO SCH (09:11)
[2025-04-24] MEDS: ASPIRIN 81 MG PO SCH (09:11)
[2025-04-24] MEDS: amLODIPine 2.5 MG TAB PO SCH (09:11)
[2025-04-24] MEDS: ATORVASTATIN 40 MG TAB PO SCH (09:11)
[2025-04-24] MEDS: ACETAMINOPHEN TAB 325 MG TAB PO PRN (09:11)
[2025-04-24] MEDS: CALCIUM CARB-VIT D 500 MG-5 MCG TAB PO SCH (09:13)
[2025-04-24] MEDS: ONDANSETRON 4 MG/2 ML VIAL IVP PRN (15:48)
[2025-04-25 07:33] LABS: HCT 38.1 % (37.2-46.3); HGB 12.7 g/dL (12.0-15.0); MCH 30.7 pg (27.0-32.0); MCHC 33.3 g/dL (32.0-37.0); MCV 92.0 fL (80.0-97.0); Platelet Count 280 10*3/uL (140-440); RBC 4.14 10*6/uL (4.10-5.20); RDW 11.9 % (11.5-14.5); WBC 16.17 10*3/uL (4.50-10.00)
[2025-04-25 07:47] LABS: African American GFR (CKD) 83 (>60 ml/min/1.73 sqM); Anion Gap 10 mmol/L; Blood Urea Nitrogen 22 mg/dL (7-17); Calcium 9.2 mg/dL (8.4-10.2); Carbon Dioxide 23 mmol/L (22-30); Chloride 105 mmol/L (98-107); Glucose 119 mg/dL (74-99); Non-African American GFR(CKD) 72 (>60 ml/min/1.73 sqM); Potassium 4.2 mmol/L (3.5-5.1); Sodium 138 mmol/L (137-145)
--- NOTE | 2025-04-25 08:16 | XR ---
EXAMINATION TYPE: XR chest 1V portable DATE OF EXAM: 04/25/2025 7:01 AM COMPARISON: 04/24/2025 CLINICAL INDICATION: Female, 69 years old with history of Status post right upper lobectomy, TECHNIQUE: XR chest 1V portable views of the chest are obtained. FINDINGS: Stable right apical pneumothorax in a patient who is status post right upper lobectomy. [address]. There is no evidence for focal infiltrate. The heart is stable. Hilar and mediastinal structures are within normal limits. Degenerative changes are seen of the dorsal spine. IMPRESSION: 1. Stable right apical pneumothorax in a patient who is status post right upper lobectomy. 2 chest t ubes remain in place. [facility], , 04/25/2025 8:14 AM
--- NOTE | 2025-04-25 08:39 | P.PN ---
Subjective Progress Note Date: 04/25/25 Principal diagnosis: Right upper lobe spiculated cavitary 1.4 cm lung nodule, right upper lobe biopsy-proven non-small cell carcinoma. Past medical history significant for chronic obstructive pulmonary disease, hypertension, hyperlipidemia, seizure disorder and chronic ongoing tobacco dependence. POD #2 Robotic assisted thoracoscopic right upper lobectomy with mediastinal ly mph node dissection, and 2 level intercostal nerve block. The patient was seen and examined in follow-up today April 25, 2025 at her bedside on the third floor cardiac stepdown unit. She is currently laying in bed, is awake, alert, oriented x 3 and is in no acute apparent distress. She is tolerating her breakfast, and denies any complaints of nausea. She was having some urine retention throughout the night requiring placement of Oliver catheter. She denies any complaints of shortness of breath at this time, although is complaining of some surgical type pain to her chest tube insertion sites, currently rating her pain 2 out of 10 on the pain scale. She does state that the current pain medication regimen is keeping her pain under control. Oxygen saturations are 93% on room air and she is achieving 750 mL on her incentive spirometry with encouragement. Right pleural chest tube remains in place with low continuous wall suction -20 cm H2O. Intermittent airleak with speaking and coughing. Draining thin serosanguineous drainage with 130 mL output in the last 8 hours and 340 mL output in the last 24 hours. Surgical pathology results remain pending. Remote telemetry is showing sinus tachycardia heart rate 101 bpm. Laboratory and chest x-ray results reviewed. Objective - Vital Signs Vital signs: Vital Signs Temp 98 F 04/25/25 04:00 Pulse 100 04/25/25 08:14 Resp 18 04/25/25 04:00 BP 142/79 04/25/25 04:00 Pulse Ox 93 L 04/25/25 04:00 FiO2 Intake & Output 04/24/25 04/25/25 04/25/25 18:59 06:59 18:59 Intake Total 496 Output Total 610 840 Balance -114 -840 Weight 72 kg Intake: IV 20 Invasive Line 1 10 Invasive Line 2 10 Oral 476 Output: Chest Tube Drainage 160 140 Chest Tube Right Lateral 160 140 Chest Urine 450 600 Straight 450 500 Post Void Residual 100 Other: Voiding Method Toilet Toilet Bedside Commode Bedside Commode # Voids 1 - Exam CONSTITUTIONAL: Appears comfortable, cooperative, no acute distress RESPIRATORY: Lungs sounds diminished bilaterally. Respirations symmetrical, nonlabored. Currently on room air with oxygen saturation 93%. Able to achieve 750 mL on incentive spirometry. Strong cough. CARDIOVASCULAR: S1, S2 present. Regular rate and rhythm, sinus tachycardia rhythm on telemetry, heart rate 101 bpm. Palpable peripheral pulses bilaterally. No edema present. No calf pain or tenderness noted. SCDs present. GASTROINTESTINAL: Abdomen soft, nontender, nondistended. Active bowel sounds present 4 quadrants. Tolerating diet. Passing flatus. GENITOURINARY: Oliver catheter in place with clear yellow urine. INTEGUMENTARY: Skin is warm and dry with evidence of good perfusion. Right chest thoracic incision well approximated and covered with dry intact dressing. NEUROLOGIC: Cranial nerves II through XII intact. No focal deficits. MUSKULOSKELETAL: Able to move all extremities, strength equal bilaterally, gait normal PSYCHIATRIC: Alert and oriented to person place and time, appropriate affect, intact judgment and insight. INVASIVE LINES AND TUBES: Right pleural chest tubes present and connected to wall suction -20 cm H2O, airleak present with coughing, and speaking. Right pleu ral chest tube with 130 mL serosanguineous drainage overnight, 340 mL last 24 hours. - Allied health notes Allied health notes reviewed: nursing - Labs CBC & Chem 7: 04/25/25 06:43 04/25/25 06:43 Labs: Abnormal Lab Results - Last 24 Hours (Table) 04/25/25 04/25/25 Range/Units 06:43 06:43 WBC 16.17 H (4.50-10.00) 10*3/uL BUN 22 H (7-17) mg/dL Glucose 119 H (74-99) mg/dL - Imaging and Cardiology Chest x-ray: report reviewed, image reviewed Assessment and Plan Assessment: Right upper lobe spiculated cavitary 1.4 cm lung nodule, right upper lobe biopsy-proven non-small cell carcinoma, status post robotic assisted thoracoscopic right upper lobectomy with mediastinal lymph node dissection Chronic obstructive pulmonary disease Hypertension Hyperlipidemia Seizure disorder Chronic ongoing tobacco dependence, vaping Plan: We will keep her right pleural chest tubes to low continuous wall suction -20 cm H2O. Continue to monitor for airleak resolution. Encourage use of incentive spirometry 10 times every hour while awake. Continue to monitor daily labs and chest x-rays. Pain control per current as needed orders. Pathology results remain pending, will continue to follow pathology results. Increase activity as tolerated. Out of bed for all meals. Continue Home medications restarted, Norvasc, Keppra, statin, and low-dose aspirin. More recommendations to follow based on patient's clinical course. Time with Patient: Greater than 30
[2025-04-25] MEDS: METOPROLOL TARTRATE 25 MG TAB PO SCH (10:15)
--- NOTE | 2025-04-25 13:11 | XR ---
EXAMINATION TYPE: XR chest 1V portable DATE OF EXAM: 04/25/2025 1:03 PM COMPARISON: None. CLINICAL INDICATION: Female, 69 years old with history of Chest tube removed from wall suction, TECHNIQUE: XR chest 1V portable views of the chest are obtained. FINDINGS: Post lobectomy change with increasing right sided pneumothorax. Apical pleural distance now measures 7.4 cm versus 3 cm previously. Double chest tubes noted within the right hemithorax. There is no evidence for focal infiltrate. The heart is stable. Hilar and mediastinal structures are within normal limits. Degenerative changes are seen of the dorsal spine. IMPRESSION: 1. Post lobectomy change with increasing right sided pneumothorax. Apical pleural distance now measu res 7.4 cm versus 3 cm previously. Double chest tubes noted within the right hemithorax. [facility], , 04/25/2025 1:08 PM
--- NOTE | 2025-04-25 13:24 | CDI ---
Documentation Clarification Form Date: 04/25/2025 12:58:45 PM From: Yeny Villagran RN CCDS Phone: [phone] Admit Date: 04/23/2025 09:45:00 AM Patient Name: Jessika Magana Visit Number: [id number] Discharge Date: ATTENTION: The Clinical Documentation Specialists (CDI) and [facility] Coding Staff appreciate your assistance in clarifying documentation. Please respond to the clarification below the line at the bottom and electronically sign. The CDI & [facility] Coding staff will review the response and follow-up if needed. Please note: Queries are made part of the Legal Health Record. If you have any questions, please contact the author of this message via ITS. Doctor: Lul Paniagua MD Residual right sided pneumothorax is documented 04/24, Pulmonary consult and the patient had Right upper lobectomy with mediastinal lymph node dissection, 04/23. Additional clarification is requested regarding the relationship, if any, that exists between the diagnosis and the procedure. History/Risk Factors: Patients Admitting Diagnosis: non- Small cell carcinoma Post-Operative Diagnosis: non- Small cell carcinoma Procedure performed: Robotic assisted thoracoscopic right upper lobectomy with mediastinal lymph node dissection. 2 level intercostal nerve block. Clinical Indicators: cxr 04/23 Postoperative changes right sided partial lobectomy with right apical pneumothorax and right chest tube cxr 04/24 Right apical pneumothorax is unchanged 2 chest tubes are noted post lobectomy changes present cxr 04/25.Stable right apical pneumothorax in a patient who is status post right upper Lobectomy. [address]. Treatment: Incentive spirometer, Serial chest xrays, Right sided chest tubes to suction Consults: Pulmonary: 04/24 Patient currently on room air. Follow up postoperative chest x ray showing postoperative changes with residual right sided pneumothorax and chest tubes in place. Right sided chest tubes continue to be to suction [id number]. What relationship, if any, exists between the diagnosis of Right sided pneumothorax and the procedure: [ ] Right sided pneumothorax is not clinically significant and not a complication [ x] Right sided pneumothorax is clinically significant and not a complication [ ] Right sided pneumothorax is clinically significant and a complication [ ] Other please specify ____ [ ] Unable to determine (Template Last Revised: October 2024) MTDD
--- NOTE | 2025-04-25 15:46 | P.PN ---
Subjective Progress Note Date: 04/25/25 Principal diagnosis: POD #2 Robotic assisted thoracoscopic right upper lobectomy with mediastinal lymph node dissection, and 2 level intercostal nerve block. Patient is a 69-year-old female with past medical history significant for right upper lobe pulmonary nodule, COPD, and tobacco smoker. Previously, underwent robotic assisted bronchoscopy with transbronchial biopsies performed by Dr. Virk back on 02/28/2025. 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 Patient was referred to cardiothoracic surgery and did undergo robotic assisted thorascopic right upper lobectomy with mediastinal lymph node dissection yesterday. No perioperative complications were reported. Postoperative chest x-ray showing a small residual right apical pneumothorax and additional postsurgical changes with two right chest tube in place. She is being seen on the cardiac stepdown unit following her procedure. She is resting comfortably on room air in the bedside recliner. Right-sided chest tube hooked to an atrium with -20 cm H2O. continues to have intermittent air leaking. Approximately 250 cc of serosanguineous output in the collection chamber. Incentive spirometer is at bedside, achieving approximately 500 cc. She is on room air. Denies any shortness of breath. Endorsing some postoperative right-sided chest pain, but adequately controlled with current analgesics Seen today on 05/22/2025, patient is doing great. Patient is awake, oriented, not in any distress, she did develop urinary retention and required placement of Oliver catheter. Her O2 sat is 93% on room air, achieving 750 mL on her incentive spirometry, continues to have some serosanguineous drainage from her chest tube, surgical pathology is pending. Patient is relatively asymptomatic. WBC count is 16.1 hemoglobin is 12.7 electrolytes are normal renal profile is normal, chest x-ray showed mostly postoperative changes with right-sided pneumothorax, seems to be more today compared to yesterday, that is being addressed by cardiothoracic surgery, I believe her chest tube may have to be placed back on suction, was taken off suction earlier today by thoracic surgery. Objective - Vital Signs Vital signs: Vital Signs Temp 97.9 F 04/25/25 12:00 Pulse 88 04/25/25 15:36 Resp 16 04/25/25 12:00 BP 148/75 04/25/25 12:00 Pulse Ox 94 L 04/25/25 12:00 FiO2 Intake & Output 04/24/25 04/25/25 04/25/25 18:59 06:59 18:59 Intake Total 496 440 Output Total 610 840 480 Balance -114 -840 -40 Weight 72 kg Intake: IV 20 20 Invasive Line 1 10 10 Invasive Line 2 10 10 Oral 476 420 Output: Chest Tube Drainage 160 140 80 Chest Tube Right Lateral 160 140 80 Chest Urine 450 600 400 Straight 450 500 Post Void Residual 100 Other: Voiding Method Toilet Toilet Toilet Bedside Commode Bedside Commode Bedside Commode # Voids 1 - Exam GENERAL EXAM: Reveals 69-year-old female in no distress HEAD: Normocephalic and atraumatic EYES: Normal reaction of pupils, equal size. NOSE: Clear with pink turbinates. THROAT: No erythema or exudates. NECK: No masses, no JVD. CHEST: Symmetrical chest expansion right side chest tube is noted continues to have some intermittent airleak LUNGS: Diminished breath sounds at the bases no rhonchi or wheezes CVS: S1 and S2 normal with no audible murmur, regular rhythm. No extra heart sounds ABDOMEN: No hepatosplenomegaly, active bowel sounds, no guarding or rigidity. SKIN: No rashes CENTRAL NERVOUS SYSTEM: Alert oriented x 3 no focal deficit EXTREMITIES: No clubbing edema or cyanosis - Labs CBC & Chem 7: 04/25/25 06:43 04/25/25 06:43 Labs: Abnormal Lab Results - Last 24 Hours (Table) 04/25/25 04/25/25 Range/Units 06:43 06:43 WBC 16.17 H (4.50-10.00) 10*3/uL BUN 22 H (7-17) mg/dL Glucose 119 H (74-99) mg/dL Assessment and Plan Assessment: Impression: Status postoperative day #2 following a robotic assisted thorascopic right upper lobectomy with mediastinal lymph node dissection History of right upper lobe spiculated cavitary 1.4 cm lung nodule, did undergo robotic assisted bronchoscopy with transbronchial biopsies on 02/28/2025, pathology positive for moderately differentiated squamous cell carcinoma Chronic obstructive pulmonary disease, stable Chronic ongoing nicotine dependence, still vapes History of seizures Hypertension History of hyperlipidemia Recommendation: Continue chest tube to suction Encourage incentive spirometry Continue DuoNeb Ambulation Consider removing Oliver catheter in the next 24 hours Pathology is pending Time with Patient: Less than 30
--- NOTE | 2025-04-25 15:53 | P.GSCN ---
History of Present Illness Consult date: 04/25/25 Reason for Consult: Urinary retention History of present illness: This is a 69-year-old female that underwent a right upper lobe lobectomy on April 23. Patient had a Oliver catheter postoperatively, subsequently the Oliver catheter was removed yesterday, she has been unable to void, Oliver catheter was reinserted today for a postvoid residual of 400 mL. At baseline she does have difficulty initiating a stream with some straining. Denies any dysuria or gross hematuria. No previous history of urinary retention. No history of recurrent UTIs or kidney stones. She did have sensation of bladder distention prior to catheter placement Review of Systems - Constitutional Denies fever, Denies weight loss - EENT Ears, nose, mouth and throat: Denies dysphagia - Gastrointestinal Reports as per HPI - Genitourinary Genitourinary: Reports difficulty voiding - Integumentary Denies rash, Denies unusual bruising - Neurological Denies headaches, Denies syncope Past Medical History Past Medical History: COPD, Eye Disorder, Hyperlipidemia, Hypertension, Seizure Disorder Additional Past Medical History / Comment(s): cancerous lung nodule rt upper lobe, MIGRAINES,HAD 1 SEIZURE SEP 2024-none since,BEGINNING CATARACTS History of Any Multi-Drug Resistant Organisms: None Reported Past Surgical History: Ear Surgery, Orthopedic Surgery Additional Past Surgical History / Comment(s): bronchoscopy w/ bx, EAR SX CHILD, LUMPECTOMY UNDER LT ARM-BENIGN, ORIF LT WRIST Past Anesthesia/Blood Transfusion Reactions: No Reported Reaction Additional Past Anesthesia/Blood Transfusion Reaction / Comm: no hx blood transfusions Smoking Status: Former smoker, Vaper - Past Family History Mother Family Medical History: No Reported History Father Family Medical History: Myocardial Infarction (HI) Medications and Allergies Home Medications Medication Instructions Recorded Confirmed Type Aspirin EC [Ecotrin Low Dose] 81 mg PO DAILY 02/27/25 04/23/25 History Aspirin/Acetaminophen/Caffeine 1 each PO DAILY PRN 02/27/25 04/17/25 History [Excedrin Migraine Caplet] Rosuvastatin [Crestor] 20 mg PO DAILY 02/27/25 04/23/25 History amLODIPine [Norvasc] 2.5 mg PO QAM 02/27/25 04/23/25 History levETIRAcetam [Keppra] 375 mg PO Q12HR 02/27/25 04/23/25 History Albuterol Inhaler [Ventolin Hfa 2 puff INHALATION Q4H PRN 04/17/25 04/23/25 History Inhaler] Calcium Carbonate/Vitamin D3 1 each PO DAILY 04/17/25 04/17/25 History [Calcium 500-Vit D3 10 Mcg (400 IU) Chew Tb] Multivit-Minerals/Folic Acid 80 mcg PO DAILY 04/17/25 04/17/25 History [Centrum Women 50 Plus Gummy] Allergies Allergy/AdvReac Type Severity Reaction Status Date / Time No Known Allergies Allergy Verified 04/23/25 10:26 Surgical - Exam Vital Signs Temp Pulse Resp BP Pulse Ox 97.2 F L 101 H 16 162/88 97 04/23/25 10:26 04/23/25 10:26 04/23/25 10:26 04/23/25 10:04/23/25 10:26 - General no distress, no pain - Eyes normal ocular movement, no pale - ENT normal nares, normal mucosa - Respiratory normal expansion, normal respiratory effort - Abdomen Abdomen: soft, non tender - Psychiatric oriented to time, oriented to person, oriented to place Results - Labs 04/25/25 06:43 04/25/25 06:43 Abnormal Lab Results - Last 24 Hours (Table) 04/25/25 04/25/25 Range/Units 06:43 06:43 WBC 16.17 H (4.50-10.00) 10*3/uL BUN 22 H (7-17) mg/dL Glucose 119 H (74-99) mg/dL Diabetes panel 04/25/25 Range/Units 06:43 Sodium 138 (137-145) mmol/L Potassium 4.2 (3.5-5.1) mmol/L Chloride 105 (98-107) mmol/L Carbon Dioxide 23 (22-30) mmol/L BUN 22 H (7-17) mg/dL Creatinine 0.84 (0.52-1.04) mg/dL Glucose 119 H (74-99) mg/dL Calcium 9.2 (8.4-10.2) mg/dL Calcium panel 04/25/25 Range/Units 06:43 Calcium 9.2 (8.4-10.2) mg/dL Pituitary panel 04/25/25 Range/Units 06:43 Sodium 138 (137-145) mmol/L Potassium 4.2 (3.5-5.1) mmol/L Chloride 105 (98-107) mmol/L Carbon Dioxide 23 (22-30) mmol/L BUN 22 H (7-17) mg/dL Creatinine 0.84 (0.52-1.04) mg/dL Glucose 119 H (74-99) mg/dL Calcium 9.2 (8.4-10.2) mg/dL Adrenal panel 04/25/25 Range/Units 06:43 Sodium 138 (137-145) mmol/L Potassium 4.2 (3.5-5.1) mmol/L Chloride 105 (98-107) mmol/L Carbon Dioxide 23 (22-30) mmol/L BUN 22 H (7-17) mg/dL Creatinine 0.84 (0.52-1.04) mg/dL Glucose 119 H (74-99) mg/dL Calcium 9.2 (8.4-10.2) mg/dL Assessment and Plan Assessment: 69-year-old female with postoperative urinary retention. Retention most likely secondary to her recent anesthetic and deconditioning straining from surgery. Recommend keeping the Oliver catheter for a minimum of 3 days, if patient's is going to be in the hospital for the next 3 days then catheter can be removed prior to discharge as long as her residuals less than 300 mL she is okay for discharge. If patient is going to be discharged soon and she can follow-up as an outpatient for a trial of void. We will start at Flomax while she is inpatient
[2025-04-25] MEDS: TAMSULOSIN 0.4 MG CAP.ER.24H PO SCH (16:44)
[2025-04-26 07:27] LABS: HCT 36.5 % (37.2-46.3); HGB 12.0 g/dL (12.0-15.0); MCH 30.8 pg (27.0-32.0); MCHC 32.9 g/dL (32.0-37.0); MCV 93.8 fL (80.0-97.0); Platelet Count 247 10*3/uL (140-440); RBC 3.89 10*6/uL (4.10-5.20); RDW 12.1 % (11.5-14.5); WBC 11.59 10*3/uL (4.50-10.00)
[2025-04-26 07:41] LABS: African American GFR (CKD) 77 (>60 ml/min/1.73 sqM); Anion Gap 6 mmol/L; Blood Urea Nitrogen 23 mg/dL (7-17); Calcium 9.1 mg/dL (8.4-10.2); Carbon Dioxide 27 mmol/L (22-30); Chloride 105 mmol/L (98-107); Glucose 101 mg/dL (74-99); Non-African American GFR(CKD) 67 (>60 ml/min/1.73 sqM); Potassium 4.8 mmol/L (3.5-5.1); Sodium 138 mmol/L (137-145)
--- NOTE | 2025-04-26 08:02 | XR ---
EXAMINATION TYPE: XR chest 1V portable DATE OF EXAM: 04/26/2025 7:18 AM COMPARISON: Chest radiographs from CLINICAL INDICATION: Female, 69 years old with history of s/p right upper lobectomy; [facility] TECHNIQUE: XR chest 1V portable Frontal view of the chest. FINDINGS: Lungs/Pleura: There is no evidence of pleural effusion, focal consolidation, or left pneumothorax. Pulmonary vascularity: Unremarkable. Heart/mediastinum: Cardiomediastinal silhouette is unremarkable. Musculoskeletal: No acute osseous pathology. Other findings: None Lines/Tubes: Right thoracotomy tubes are present with pneumothorax. IMPRESSION: Right thoracotomy tube with small right pneumothorax [facility] Lidia Rai, , 04/26/2025 7:59 AM
--- NOTE | 2025-04-26 08:17 | P.PN ---
Subjective Progress Note Date: 04/26/25 Principal diagnosis: Right upper lobe spiculated cavitary 1.4 cm lung nodule, right upper lobe biopsy-proven non-small cell carcinoma. Past medical history significant for chronic obstructive pulmonary disease, hypertension, hyperlipidemia, seizure disorder and chronic ongoing tobacco dependence. POD #3 Robotic assisted thoracoscopic right upper lobectomy with mediastinal ly mph node dissection, and 2 level intercostal nerve block. The patient was seen and examined in follow-up today April 26, 2025 at her bedside on the third floor cardiac stepdown unit. She is currently sitting up to the bedside chair, is awake, alert, oriented x 3 and is in no acute apparent distress. She is tolerating her breakfast and denies any complaints of nausea. Oxygen saturations are 95% on room air and she is achieving 1000 mL on her incentive spirometry. Her right pleural chest tube was trialed to waterseal yesterday with a repeat chest x-ray a couple hours after which demonstrated an increasing right sided pneumothorax. Her chest tube was subsequently placed back to low continuous wall suction -20 cm H2O. Intermittent airleak remains present this morning with coughing and talking. Draining thin serosanguineous drainage with 80 mL output in the last 8 hours and 150 mL output in the last 24 hours. She reports her pain is well-controlled on the current pain medication regimen and denies any complaints of shortness of breath. She reports she has been up ambulating in her room independently and tolerating well. Remote telemetry is showing normal sinus rhythm heart rate 80 bpm. Chest x-ray and laboratory results reviewed. The patient did experience some urine retention postoperatively requiring placement of Oliver catheter. She was seen by urology and has been initiated on Flomax 0.4 mg p.o. daily. Objective - Vital Signs Vital signs: Vital Signs Temp 98.2 F 04/26/25 04:00 Pulse 80 04/26/25 04:00 Resp 16 04/26/25 04:00 BP 108/71 04/26/25 04:00 Pulse Ox 95 04/26/25 04:00 FiO2 Intake & Output 04/25/25 04/26/25 04/26/25 18:59 06:59 18:59 Intake Total 680 Output Total 1290 880 Balance -610 -880 Weight 75 kg Intake: IV 20 Invasive Line 1 10 Invasive Line 2 10 Oral 660 Output: Chest Tube Drainage 140 80 Chest Tube Right Lateral 140 80 Chest Urine 1150 800 Other: Voiding Method Toilet Indwelling Catheter Bedside Commode - Exam CONSTITUTIONAL: Appears comfortable, cooperative, no acute distress RESPIRATORY: Lungs sounds diminished bilaterally. Respirations symmetrical, nonlabored. Currently on room air with oxygen saturation 95%. Able to achieve 1000 mL on her incentive spirometry. Strong cough. CARDIOVASCULAR: S1, S2 present. Regular rate and rhythm, sinus rhythm on telemetry, heart rate 80 bpm. Palpable peripheral pulses bilaterally. No edema present. No calf pain or tenderness noted. SCDs present. GASTROINTESTINAL: Abdomen soft, nontender, nondistended. Active bowel sounds present 4 quadrants. Tolerating diet. Passing flatus. GENITOURINARY: Oliver catheter in place with clear yellow urine. 800 mL of urine output in the last 8 hours. INTEGUMENTARY: Skin is warm and dry with evidence of good perfusion. Right chest thoracic incision well approximated and covered with dry intact dressing. NEUROLOGIC: Cranial nerves II through XII intact. No focal deficits. MUSKULOSKELETAL: Able to move all extremities, strength equal bilaterally, gait normal PSYCHIATRIC: Alert and oriented to person place and time, appropriate affect, intact judgment and insight. INVASIVE LINES AND TUBES: Right pleural chest tubes present and connected to wall suction -20 cm H2O, airleak present with coughing, and speaking. Right pleural chest tube with 80 mL serosanguineous drainage overnight, 150 mL last 24 hours. - Allied health notes Allied health notes reviewed: nursing - Labs CBC & Chem 7: 04/26/25 05:43 04/26/25 05:43 Labs: Abnormal Lab Results - Last 24 Hours (Table) 04/26/25 04/26/25 Range/Units 05:43 05:43 WBC 11.59 H (4.50-10.00) 10*3/uL RBC 3.89 L (4.10-5.20) 10*6/uL Hct 36.5 L (37.2-46.3) % BUN 23 H (7-17) mg/dL Glucose 101 H (74-99) mg/dL - Imaging and Cardiology Chest x-ray: report reviewed, image reviewed Assessment and Plan Assessment: Right upper lobe spiculated cavitary 1.4 cm lung nodule, right upper lobe biopsy-proven non-small cell carcinoma, status post robotic assisted thoracoscopic right upper lobectomy with mediastinal lymph node dissection Postoperative urine retention, unexpected, possibly secondary to recent anesthesia Chronic obstructive pulmonary disease Hypertension Hyperlipidemia Seizure disorder Chronic ongoing tobacco dependence, vaping Plan: We will keep her right pleural chest tubes to low continuous wall suction -20 cm H2O. Continue to monitor for airleak resolution. We will continue her right pleural chest tube to low continuous wall suction throughout the weekend. Encourage use of incentive spirometry 10 times every hour while awake. Continue to monitor daily labs and chest x-rays. Pain control per current as needed orders. Pathology results remain pending, will continue to follow pathology results. Increase activity as tolerated. Out of bed for all meals. Continue Home medications restarted, Norvasc, Keppra, statin, and low-dose aspirin. Urology consult noted and appreciated. We will continue her Oliver catheter as recommended per urology. Flomax has been initiated by urology. More recommendations to follow based on patient's clinical course. Time with Patient: Greater than 30
--- NOTE | 2025-04-26 14:27 | P.PN ---
Subjective Progress Note Date: 04/26/25 Principal diagnosis: POD #3 robotic assisted thoracoscopic right upper lobectomy with mediastinal lymph node dissection, and 2 level intercostal nerve block. Patient is a 69-year-old female with past medical history significant for right upper lobe pulmonary nodule, COPD, and tobacco smoker. Previously, underwent robotic assisted bronchoscopy with transbronchial biopsies performed by Dr. Virk back on 02/28/2025. 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 Patient was referred to cardiothoracic surgery and did undergo robotic assisted thorascopic right upper lobectomy with mediastinal lymph node dissection yesterday. No perioperative complications were reported. Postoperative chest x-ray showing a small residual right apical pneumothorax and additional postsurgical changes with two right chest tube in place. She is being seen on the cardiac stepdown unit following her procedure. She is resting comfortably on room air in the bedside recliner. Right-sided chest tube hooked to an atrium with -20 cm H2O. continues to have intermittent air leaking. Approximately 250 cc of serosanguineous output in the collection chamber. Incentive spirometer is at bedside, achieving approximately 500 cc. She is on room air. Denies any shortness of breath. Endorsing some postoperative right-sided chest pain, but adequately controlled with current analgesics Seen today on 04/25/2025, patient is doing great. Patient is awake, oriented, not in any distress, she did develop urinary retention and required placement of Oliver catheter. Her O2 sat is 93% on room air, achieving 750 mL on her incentive spirometry, continues to have some serosanguineous drainage from her chest tube, surgical pathology is pending. Patient is relatively asymptomatic. WBC count is 16.1 hemoglobin is 12.7 electrolytes are normal renal profile is n ormal, chest x-ray showed mostly postoperative changes with right-sided pneumothorax, seems to be more today compared to yesterday, that is being addressed by cardiothoracic surgery, I believe her chest tube may have to be placed back on suction, was taken off suction earlier today by thoracic surgery. Patient was seen today on 04/26/2025, continues to do well clinically, asymptomatic, back on wall suction, patient continues to have good air leak, not in any distress, feels great. Patient is hemodynamically stable, draining 80 mL output in the last 8 hours and 150 mL in the last 24 hours from her chest tube. Continues to have Oliver catheter in place, she is now on Flomax. WBC count is 11.5 hemoglobin 12 electrolytes are normal BUN is 23 creatinine 0.89 Objective - Vital Signs Vital signs: Vital Signs Temp 98.0 F 04/26/25 12:27 Pulse 84 04/26/25 12:27 Resp 16 04/26/25 12:27 BP 110/70 04/26/25 12:27 Pulse Ox 94 L 04/26/25 12:27 FiO2 Intake & Output 04/25/25 04/26/25 04/26/25 18:59 06:59 18:59 Intake Total 680 20 Output Total 1290 880 265 Balance -610 -880 -245 Weight 75 kg Intake: IV 20 20 Invasive Line 1 10 Invasive Line 2 10 20 Oral 660 Output: Chest Tube Drainage 140 80 40 Chest Tube Right Lateral 140 80 40 Chest Urine 1150 800 225 Other: Voiding Method Toilet Indwelling Catheter Indwelling Catheter Bedside Commode - Exam GENERAL EXAM: Reveals 69-year-old female in no distress HEAD: Normocephalic and atraumatic EYES: Normal reaction of pupils, equal size. NOSE: Clear with pink turbinates. THROAT: No erythema or exudates. NECK: No masses, no JVD. CHEST: Symmetrical chest expansion right side chest tube is noted, airleak present LUNGS: Diminished breath sounds at the bases no rhonchi or wheezes CVS: S1 and S2 normal with no audible murmur, regular rhythm. No extra heart sounds ABDOMEN: No hepatosplenomegaly, active bowel sounds, no guarding or rigidity. SKIN: No rashes CENTRAL NERVOUS SYSTEM: Alert oriented x 3 no focal deficit EXTREMITIES: No clubbing edema or cyanosis - Labs CBC & Chem 7: 04/26/25 05:43 04/26/25 05:43 Labs: Abnormal Lab Results - Last 24 Hours (Table) 04/26/25 04/26/25 Range/Units 05:43 05:43 WBC 11.59 H (4.50-10.00) 10*3/uL RBC 3.89 L (4.10-5.20) 10*6/uL Hct 36.5 L (37.2-46.3) % BUN 23 H (7-17) mg/dL Glucose 101 H (74-99) mg/dL Assessment and Plan Assessment: Impression: Status postoperative day #2 following a robotic assisted thorascopic right upper lobectomy with mediastinal lymph node dissection History of right upper lobe spiculated cavitary 1.4 cm lung nodule, did undergo robotic assisted bronchoscopy with transbronchial biopsies on 02/28/2025, pat hology positive for moderately differentiated squamous cell carcinoma Chronic obstructive pulmonary disease, stable Chronic ongoing nicotine dependence, still vapes History of seizures Hypertension History of hyperlipidemia Recommendation: Continue chest tube to suction Continue incentive spirometry Continue DuoNeb Ambulation Continue Flomax and likely discontinue Oliver catheter in the next 24 hours. Pathology is pending We will continue to follow Time with Patient: Less than 30
--- NOTE | 2025-04-27 07:29 | P.PN ---
Subjective Progress Note Date: 04/27/25 Principal diagnosis: Right upper lobe spiculated cavitary 1.4 cm lung nodule, right upper lobe biopsy-proven non-small cell carcinoma. Past medical history significant for chronic obstructive pulmonary disease, hypertension, hyperlipidemia, seizure disorder and chronic ongoing tobacco dependence. POD #4 Robotic assisted thoracoscopic right upper lobectomy with mediastinal ly mph node dissection, and 2 level intercostal nerve block. The patient was seen and examined in follow-up today April 27, 2025 at her bedside on the third floor cardiac stepdown unit. She is currently sitting up to the bedside chair, is awake, alert, oriented x 3 and is in no acute apparent distress. She denies any complaints of pain or shortness of breath at this time. Oxygen saturations are 95% on room air and she is achieving 750 to 1000 mL on her incentive spirometry with encouragement. Remote telemetry showing normal sinus rhythm heart rate 81 bpm. Surgical pathology results remain pen ding. Chest x-ray results reviewed. She reports she has been up ambulating in her room without difficulty and tolerating well. Right pleural chest tube remains in place to low continuous wall suction, intermittent airleak present with coughing and talking. Draining thin serosanguineous drainage with 10 mL output in the last 8 hours and 130 mL output in the last 24 hours. Oliver catheter remains in place for some urine retention, followed by urology. Flomax remains in place. Objective - Vital Signs Vital signs: Vital Signs Temp 97.9 F 04/27/25 03:59 Pulse 66 04/27/25 03:59 Resp 16 04/27/25 03:59 BP 95/59 04/27/25 03:59 Pulse Ox 95 04/27/25 03:59 FiO2 Intake & Output 04/26/25 04/27/25 04/27/25 18:59 06:59 18:59 Intake Total 980 10 Output Total 305 960 Balance 675 -950 Weight 75 kg Intake: IV 20 10 Invasive Line 2 20 10 Oral 960 Output: Chest Tube Drainage 80 Chest Tube Right Lateral 80 Chest Drainage 10 Right Chest 10 Urine 225 950 Other: Voiding Method Indwelling Catheter Indwelling Catheter - Exam CONSTITUTIONAL: Appears comfortable, cooperative, no acute distress RESPIRATORY: Lungs sounds diminished bilaterally. Respirations symmetrical, nonlabored. Currently on room air with oxygen saturation 95%. Able to achieve 750-1000 mL on her incentive spirometry. Strong cough. CARDIOVASCULAR: S1, S2 present. Regular rate and rhythm, sinus rhythm on telemetry, heart rate 80 bpm. Palpable peripheral pulses bilaterally. No edema present. No calf pain or tenderness noted. SCDs present. GASTROINTESTINAL: Abdomen soft, nontender, nondistended. Active bowel sounds present 4 quadrants. Tolerating diet. Passing flatus. GENITOURINARY: Oliver catheter in place with clear yellow urine. 550 mL of urine output in the last 8 hours. INTEGUMENTARY: Skin is warm and dry with evidence of good perfusion. Right chest thoracic incision well approximated and covered with dry intact dressing. NEUROLOGIC: Cranial nerves II through XII intact. No focal deficits. MUSKULOSKELETAL: Able to move all extremities, strength equal bilaterally, gait normal PSYCHIATRIC: Alert and oriented to person place and time, appropriate affect, intact judgment and insight. INVASIVE LINES AND TUBES: Right pleural chest tubes present and connected to wall suction -20 cm H2O, airleak present with coughing, and speaking. Right pleural chest tube with 10 mL serosanguineous drainage overnight, 130 mL last 24 hours. - Allied health notes Allied health notes reviewed: nursing - Labs CBC & Chem 7: 04/26/25 05:43 04/26/25 05:43 Labs: Abnormal Lab Results - Last 24 Hours (Table) 04/26/25 04/26/25 Range/Units 05:43 05:43 WBC 11.59 H (4.50-10.00) 10*3/uL RBC 3.89 L (4.10-5.20) 10*6/uL Hct 36.5 L (37.2-46.3) % BUN 23 H (7-17) mg/dL Glucose 101 H (74-99) mg/dL - Imaging and Cardiology Chest x-ray: report reviewed, image reviewed Assessment and Plan Assessment: Right upper lobe spiculated cavitary 1.4 cm lung nodule, right upper lobe biopsy-proven non-small cell carcinoma, status post robotic assisted thoracoscopic right upper lobectomy with mediastinal lymph node dissection Postoperative urine retention, unexpected, possibly secondary to recent anesthesia Chronic obstructive pulmonary disease Hypertension Hyperlipidemia Seizure disorder Chronic ongoing tobacco dependence, vaping Plan: We will keep her right pleural chest tubes to low continuous wall suction -20 cm H2O. Continue to monitor for airleak resolution. We will continue her right pleural chest tube to low continuous wall suction throughout the weekend. Encourage use of incentive spirometry 10 times every hour while awake. Continue to monitor daily labs and chest x-rays. Pain control per current as needed orders. Pathology results remain pending, will continue to follow pathology results. Increase activity as tolerated. Out of bed for all meals. Continue Home medications restarted, Norvasc, Keppra, statin, and low-dose aspirin. Urology consult noted and appreciated. We will continue her Oliver catheter as recommended per urology. Flomax has been initiated by urology. More recommendations to follow based on patient's clinical course. Time with Patient: Greater than 30
--- NOTE | 2025-04-27 07:31 | XR ---
EXAMINATION TYPE: XR chest 1V portable DATE OF EXAM: 04/27/2025 5:14 AM COMPARISON: Chest radiograph from one day prior. CLINICAL INDICATION: Female, 69 years old with history of s/p right upper lobectomy; [facility] TECHNIQUE: XR chest 1V portable Frontal view of the chest. FINDINGS: Lungs/Pleura: There is no evidence of pleural effusion, focal consolidation, or left pneumothorax. Pulmonary vascularity: Unremarkable. Heart/mediastinum: Cardiomediastinal silhouette is unremarkable. Musculoskeletal: No acute osseous pathology. Other findings: None Lines/Tubes: Right thoracotomy tubes are present with pneumothorax. IMPRESSION: Similar Right thoracotomy tubes with small right pneumothorax [facility], , 04/27/2025 7:29 AM
--- NOTE | 2025-04-27 11:22 | P.PN ---
Subjective Progress Note Date: 04/27/25 Principal diagnosis: POD #4 robotic assisted thoracoscopic right upper lobectomy with mediastinal lymph node dissection, and 2 level intercostal nerve block. Patient is a 69-year-old female with past medical history significant for right upper lobe pulmonary nodule, COPD, and tobacco smoker. Previously, underwent robotic assisted bronchoscopy with transbronchial biopsies performed by Dr. Virk back on 02/28/2025. 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 Patient was referred to cardiothoracic surgery and did undergo robotic assisted thorascopic right upper lobectomy with mediastinal lymph node dissection yesterday. No perioperative complications were reported. Postoperative chest x-ray showing a small residual right apical pneumothorax and additional postsurgical changes with two right chest tube in place. She is being seen on the cardiac stepdown unit following her procedure. She is resting comfortably on room air in the bedside recliner. Right-sided chest tube hooked to an atrium with -20 cm H2O. continues to have intermittent air leaking. Approximately 250 cc of serosanguineous output in the collection chamber. Incentive spirometer is at bedside, achieving approximately 500 cc. She is on room air. Denies any shortness of breath. Endorsing some postoperative right-sided chest pain, but adequately controlled with current analgesics Seen today on 04/25/2025, patient is doing great. Patient is awake, oriented, not in any distress, she did develop urinary retention and required placement of Oliver catheter. Her O2 sat is 93% on room air, achieving 750 mL on her incentive spirometry, continues to have some serosanguineous drainage from her chest tube, surgical pathology is pending. Patient is relatively asymptomatic. WBC count is 16.1 hemoglobin is 12.7 electrolytes are normal renal profile is n ormal, chest x-ray showed mostly postoperative changes with right-sided pneumothorax, seems to be more today compared to yesterday, that is being addressed by cardiothoracic surgery, I believe her chest tube may have to be placed back on suction, was taken off suction earlier today by thoracic surgery. Patient was seen today on 04/26/2025, continues to do well clinically, asymptomatic, back on wall suction, patient continues to have good air leak, not in any distress, feels great. Patient is hemodynamically stable, draining 80 mL output in the last 8 hours and 150 mL in the last 24 hours from her chest tube. Continues to have Oliver catheter in place, she is now on Flomax. WBC count is 11.5 hemoglobin 12 electrolytes are normal BUN is 23 creatinine 0.89 Patient was seen today on 04/27/2025, patient is doing well, continues to have airleak, but she is not in any distress, continues to have apical pneumothorax, patient denies any cough wheezing or shortness of breath, denies any chest pain. Labs today are basically unremarkable including CBC and basic metabolic profile. Patient is achieving about 1000 cc on her incentive spirometry her chest tube is draining thin serosanguineous drainage less than 130 mL in the last 24 hours. Her Oliver catheter remains in place, could consider d iscontinuation but she is followed by urology. Objective - Vital Signs Vital signs: Vital Signs Temp 98 F 04/27/25 08:00 Pulse 96 04/27/25 08:00 Resp 18 04/27/25 08:00 BP 119/63 04/27/25 08:00 Pulse Ox 96 04/27/25 08:00 FiO2 Intake & Output 04/26/25 04/27/25 04/27/25 18:59 06:59 18:59 Intake Total 980 10 480 Output Total 305 960 10 Balance 675 -950 470 Weight 75 kg Intake: IV 20 10 Invasive Line 2 20 10 Oral 960 480 Output: Chest Tube Drainage 80 Chest Tube Right Lateral 80 Chest Drainage 10 10 Right Chest 10 10 Urine 225 950 Other: Voiding Method Indwelling Catheter Indwelling Catheter Indwelling Catheter - Exam GENERAL EXAM: Reveals 69-year-old female in no distress HEAD: Normocephalic and atraumatic EYES: Normal reaction of pupils, equal size. NOSE: Clear with pink turbinates. THROAT: No erythema or exudates. NECK: No masses, no JVD. CHEST: Symmetrical chest expansion right side chest tube is noted, airleak present LUNGS: Diminished breath sounds at the bases no rhonchi or wheezes CVS: S1 and S2 normal with no audible murmur, regular rhythm. No extra heart sounds ABDOMEN: No hepatosplenomegaly, active bowel sounds, no guarding or rigidity. SKIN: No rashes CENTRAL NERVOUS SYSTEM: Alert oriented x 3 no focal deficit EXTREMITIES: No clubbing edema or cyanosis - Labs CBC & Chem 7: 04/26/25 05:43 04/26/25 05:43 Assessment and Plan Assessment: Impression: Status postoperative day #4 following a robotic assisted thorascopic right upper lobectomy with mediastinal lymph node dissection History of right upper lobe spiculated cavitary 1.4 cm lung nodule, did undergo robotic assisted bronchoscopy with transbronchial biopsies on 02/28/2025, pathology positive for moderately differentiated squamous cell carcinoma Chronic obstructive pulmonary disease, stable Chronic ongoing nicotine dependence, still vapes History of seizures Hypertension History of hyperlipidemia Recommendation: Continue chest tube to wall suction Continue incentive spirometry Continue DuoNeb Continue ambulation Continue Flomax urology is addressing Loiver catheter. Pathology is pending We will continue to follow Time with Patient: Less than 30
--- NOTE | 2025-04-28 07:18 | XR ---
EXAMINATION TYPE: XR chest 1V DATE OF EXAM: 04/28/2025 5:50 AM COMPARISON: Chest radiograph from one day prior. CLINICAL INDICATION: Female, 69 years old with history of s/p right upper lobectomy; [facility] TECHNIQUE: XR chest 1V Frontal view of the chest. FINDINGS: Lungs/Pleura: There is no evidence of pleural effusion, focal consolidation, or left pneumothorax. Pulmonary vascularity: Unremarkable. Heart/mediastinum: Cardiomediastinal silhouette is unremarkable. Musculoskeletal: No acute osseous pathology. Other findings: None Lines/Tubes: Right thoracotomy tubes are present with pneumothorax. IMPRESSION: Similar Right thoracotomy tubes with small right pneumothorax [facility], , 04/28/2025 7:15 AM
[2025-04-28 08:02] LABS: HCT 37.1 % (37.2-46.3); HGB 12.2 g/dL (12.0-15.0); MCH 30.5 pg (27.0-32.0); MCHC 32.9 g/dL (32.0-37.0); MCV 92.8 fL (80.0-97.0); Platelet Count 272 10*3/uL (140-440); RBC 4.00 10*6/uL (4.10-5.20); RDW 12.3 % (11.5-14.5); WBC 11.08 10*3/uL (4.50-10.00)
--- NOTE | 2025-04-28 08:15 | P.PN ---
Subjective Progress Note Date: 04/28/25 Principal diagnosis: Right upper lobe spiculated cavitary 1.4 cm lung nodule, right upper lobe biopsy-proven non-small cell carcinoma. Past medical history significant for chronic obstructive pulmonary disease, hypertension, hyperlipidemia, seizure disorder and chronic ongoing tobacco dependence. POD #5 Robotic assisted thoracoscopic right upper lobectomy with mediastinal ly mph node dissection, and 2 level intercostal nerve block. The patient was seen and examined in follow-up today April 28, 2025 at her bedside on the third floor cardiac stepdown unit. She is currently sitting up to the bedside edge, is awake, alert, oriented x 3 and is in no acute apparent distress. She denies any complaints of pain or shortness of breath at this time and reports she feels like she is improving today. She has been up ambulating in the cardiac stepdown and hallway with standby assistance from nursing staff and reports that with ambulation she does have some occasional shortness of breath. Oxygen saturations are 95% on room air and she is achieving 1000 mL on her incentive spirometry with encouragement. Remote telemetry is showing normal sinus rhythm heart rate 90 bpm. Surgical pathology results remain pending. Chest x-ray results reviewed, lab results remain pending. Objective - Vital Signs Vital signs: Vital Signs Temp 98.0 F 04/28/25 04:00 Pulse 77 04/28/25 04:00 Resp 16 04/28/25 04:00 BP 97/64 04/28/25 04:00 Pulse Ox 95 04/28/25 04:00 FiO2 Intake & Output 04/27/25 04/28/25 04/28/25 18:59 06:59 18:59 Intake Total 960 Output Total 1260 40 Balance -300 -40 Weight 74.5 kg Intake: Oral 960 Output: Chest Tube Drainage 100 40 Chest Tube Right Lateral 100 40 Chest Drainage 10 Right Chest 10 Urine 1150 Other: Voiding Method Indwelling Catheter Indwelling Catheter - Exam CONSTITUTIONAL: Appears comfortable, cooperative, no acute distress RESPIRATORY: Lungs sounds essentially clear throughout, diminished to her bilateral bases. Respirations symmetrical, nonlabored. Currently on room air with oxygen saturation 95%. Able to achieve 1000 mL on her incentive spirometry. Strong cough. CARDIOVASCULAR: S1, S2 present. Regular rate and rhythm, sinus rhythm on telemetry, heart rate 90 bpm. Palpable peripheral pulses bilaterally. No edema present. No calf pain or tenderness noted. SCDs present. GASTROINTESTINAL: Abdomen soft, nontender, nondistended. Active bowel sounds present 4 quadrants. Tolerating diet. Passing flatus. GENITOURINARY: Oliver catheter in place with clear yellow urine. INTEGUMENTARY: Skin is warm and dry with evidence of good perfusion. Right chest thoracic incision well approximated and covered with dry intact dressing. NEUROLOGIC: Cranial nerves II through XII intact. No focal deficits. MUSKULOSKELETAL: Able to move all extremities, strength equal bilaterally, gait normal PSYCHIATRIC: Alert and oriented to person place and time, appropriate affect, intact judgment and insight. INVASIVE LINES AND TUBES: Right pleural chest tubes present and connected to wall suction -20 cm H2O, airleak present with coughing, and speaking. Right pleural chest tube with 10 mL serosanguineous drainage overnight, 140 mL last 24 hours. - Allied health notes Allied health notes reviewed: nursing - Labs CBC & Chem 7: 04/28/25 06:23 04/26/25 05:43 - Imaging and Cardiology Chest x-ray: report reviewed, image reviewed Assessment and Plan Assessment: Right upper lobe spiculated cavitary 1.4 cm lung nodule, right upper lobe biopsy-proven non-small cell carcinoma, status post robotic assisted thoracoscopic right upper lobectomy with mediastinal lymph node dissection Postoperative urine retention, unexpected, possibly secondary to recent anesthesia Chronic obstructive pulmonary disease Hypertension Hyperlipidemia Seizure disorder Chronic ongoing tobacco dependence, vaping Plan: We will keep her right pleural chest tubes to low continuous wall suction -20 cm H2O. Continue to monitor for airleak resolution. We will continue her right pleural chest tube to low continuous wall suction throughout the weekend. Encourage use of incentive spirometry 10 times every hour while awake. Continue to monitor daily labs and chest x-rays. Pain control per current as needed orders. Pathology results remain pending, will continue to follow pathology results. Increase activity as tolerated. Out of bed for all meals. We will continue her Oliver catheter as recommended per urology. Flomax has been initiated by urology. Remove Oliver catheter in a.m. on 04/29/2025 More recommendations to follow based on patient's clinical course. Time with Patient: Greater than 30
[2025-04-28 08:23] LABS: African American GFR (CKD) 82 (>60 ml/min/1.73 sqM); Anion Gap 8 mmol/L; Blood Urea Nitrogen 18 mg/dL (7-17); Calcium 9.5 mg/dL (8.4-10.2); Carbon Dioxide 26 mmol/L (22-30); Chloride 104 mmol/L (98-107); Glucose 118 mg/dL (74-99); Non-African American GFR(CKD) 71 (>60 ml/min/1.73 sqM); Potassium 4.5 mmol/L (3.5-5.1); Sodium 138 mmol/L (137-145)
--- NOTE | 2025-04-28 12:29 | P.PN ---
Subjective Progress Note Date: 04/28/25 Principal diagnosis: POD # 5 robotic assisted thoracoscopic right upper lobectomy with mediastinal lymph node dissection, and 2 level intercostal nerve block. Patient is a 69-year-old female with past medical history significant for right upper lobe pulmonary nodule, COPD, and tobacco smoker. Previously, underwent robotic assisted bronchoscopy with transbronchial biopsies performed by Dr. Virk back on 02/28/2025. 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 Patient was referred to cardiothoracic surgery and did undergo robotic assisted thorascopic right upper lobectomy with mediastinal lymph node dissection yesterday. No perioperative complications were reported. Postoperative chest x-ray showing a small residual right apical pneumothorax and additional postsurgical changes with two right chest tube in place. She is being seen on the cardiac stepdown unit following her procedure. She is resting comfortably on room air in the bedside recliner. Right-sided chest tube hooked to an atrium with -20 cm H2O. continues to have intermittent air leaking. Approximately 250 cc of serosanguineous output in the collection chamber. Incentive spirometer is at bedside, achieving approximately 500 cc. She is on room air. Denies any shortness of breath. Endorsing some postoperative right-sided chest pain, but adequately controlled with current analgesics Seen today on 04/25/2025, patient is doing great. Patient is awake, oriented, not in any distress, she did develop urinary retention and required placement of Oliver catheter. Her O2 sat is 93% on room air, achieving 750 mL on her incentive spirometry, continues to have some serosanguineous drainage from her chest tube, surgical pathology is pending. Patient is relatively asymptomatic. WBC count is 16.1 hemoglobin is 12.7 electrolytes are normal renal profile is normal, chest x-ray showed mostly postoperative changes with right-sided pneumothorax, seems to be more today compared to yesterday, that is being addressed by cardiothoracic surgery, I believe her chest tube may have to be placed back on suction, was taken off suction earlier today by thoracic surgery. Patient was seen today on 04/26/2025, continues to do well clinically, asymptomatic, back on wall suction, patient continues to have good air leak, not in any distress, feels great. Patient is hemodynamically stable, draining 80 mL output in the last 8 hours and 150 mL in the last 24 hours from her chest tube. Continues to have Oliver catheter in place, she is now on Flomax. WBC count is 11.5 hemoglobin 12 electrolytes are normal BUN is 23 creatinine 0.89 Patient was seen today on 04/27/2025, patient is doing well, continues to have airleak, but she is not in any distress, continues to have apical pneumothorax, patient denies any cough wheezing or shortness of breath, denies any chest pain. Labs today are basically unremarkable including CBC and basic metabolic profile. Patient is achieving about 1000 cc on her incentive spirometry her chest tube is draining thin serosanguineous drainage less than 130 mL in the last 24 hours. Her Oliver catheter remains in place, could consider discontinuation but she is followed by urology. Seen today on 04/28/2025, patient is about the same, not much is happening over the last couple of days. Continues to have airleak continues to have chest tube on suction, continues to have small pneumothorax on chest x-ray, however clinically the patient is doing great, chest tube is not ready to be removed yet, she is achieving about 1000 cc on incentive spirometry, she is ambulating, continues to have Oliver catheter in place. As recommended by urology. Labs were reviewed WBC count is 11 hemoglobin 12.2 electrolytes are normal renal profile is normal Objective - Vital Signs Vital signs: Vital Signs Temp 98.1 F 04/28/25 08:00 Pulse 86 04/28/25 11:55 Resp 18 04/28/25 08:00 BP 89/59 04/28/25 08:00 Pulse Ox 98 04/28/25 08:00 FiO2 Intake & Output 04/27/25 04/28/25 04/28/25 18:59 06:59 18:59 Intake Total 960 240 Output Total 1260 40 850 Balance -300 -40 -610 Weight 74.5 kg Intake: Oral 960 240 Output: Chest Tube Drainage 100 40 Chest Tube Right Lateral 100 40 Chest Drainage 10 Right Chest 10 Urine 1150 850 Other: Voiding Method Indwelling Catheter Indwelling Catheter Indwelling Catheter - Exam GENERAL EXAM: Reveals 69-year-old female in no distress HEAD: Normocephalic and atraumatic EYES: Normal reaction of pupils, equal size. NOSE: Clear with pink turbinates. THROAT: No erythema or exudates. NECK: No masses, no JVD. CHEST: Symmetrical chest expansion right side chest tube is noted, airleak present LUNGS: Diminished breath sounds at the bases no rhonchi or wheezes CVS: S1 and S2 normal with no audible murmur, regular rhythm. No extra heart sounds ABDOMEN: No hepatosplenomegaly, active bowel sounds, no guarding or rigidity. SKIN: No rashes CENTRAL NERVOUS SYSTEM: Alert oriented x 3 no focal deficit EXTREMITIES: No clubbing edema or cyanosis - Labs CBC & Chem 7: 04/28/25 06:23 04/28/25 06:23 Labs: Abnormal Lab Results - Last 24 Hours (Table) 04/28/25 04/28/25 Range/Units 06:23 06:23 WBC 11.08 H (4.50-10.00) 10*3/uL RBC 4.00 L (4.10-5.20) 10*6/uL Hct 37.1 L (37.2-46.3) % BUN 18 H (7-17) mg/dL Glucose 118 H (74-99) mg/dL Assessment and Plan Assessment: Impression: Status postoperative day #5 following a robotic assisted thorascopic right upper lobectomy with mediastinal lymph node dissection History of right upper lobe spiculated cavitary 1.4 cm lung nodule, did undergo robotic assisted bronchoscopy with transbronchial biopsies on 02/28/2025, pathology positive for moderately differentiated squamous cell carcinoma Chronic obstructive pulmonary disease, stable Chronic ongoing nicotine dependence, still vapes History of seizures Hypertension History of hyperlipidemia Recommendation: Continue chest tube to wall suction Continue incentive spirometry Continue DuoNeb Continue ambulation Pathology is pending We will continue to follow Time with Patient: Less than 30
--- NOTE | 2025-04-28 16:47 | P.PN ---
Subjective Progress Note Date: 04/28/25 No acute overnight event, urine is clear. Objective - Vital Signs Vital signs: Vital Signs Temp 98.1 F 04/28/25 08:00 Pulse 89 04/28/25 14:59 Resp 18 04/28/25 13:53 BP 89/59 04/28/25 08:00 Pulse Ox 98 04/28/25 08:00 FiO2 Intake & Output 04/27/25 04/28/25 04/28/25 18:59 06:59 18:59 Intake Total 960 360 Output Total 1260 40 850 Balance -300 -40 -490 Weight 74.5 kg Intake: Oral 960 360 Output: Chest Tube Drainage 100 40 Chest Tube Right Lateral 100 40 Chest Drainage 10 Right Chest 10 Urine 1150 850 Other: Voiding Method Indwelling Catheter Indwelling Catheter Indwelling Catheter - Constitutional General appearance: Present: no acute distress - Gastrointestinal General gastrointestinal: Present: soft. Absent: distended - Labs CBC & Chem 7: 04/28/25 06:23 04/28/25 06:23 Labs: Abnormal Lab Results - Last 24 Hours (Table) 04/28/25 04/28/25 Range/Units 06:23 06:23 WBC 11.08 H (4.50-10.00) 10*3/uL RBC 4.00 L (4.10-5.20) 10*6/uL Hct 37.1 L (37.2-46.3) % BUN 18 H (7-17) mg/dL Glucose 118 H (74-99) mg/dL Assessment and Plan Assessment: 69-year-old female with postoperative urinary retention. Retention most likely secondary to her recent anesthetic and deconditioning straining from surgery. Continue Flomax for now Oliver catheter can be removed tomorrow a.m., please check with patient's residual, if less than 300 mL no further intervention is needed
[2025-04-29 06:34] LABS: HCT 36.2 % (37.2-46.3); HGB 12.0 g/dL (12.0-15.0); MCH 30.5 pg (27.0-32.0); MCHC 33.1 g/dL (32.0-37.0); MCV 91.9 fL (80.0-97.0); Platelet Count 288 10*3/uL (140-440); RBC 3.94 10*6/uL (4.10-5.20); RDW 12.4 % (11.5-14.5); WBC 11.60 10*3/uL (4.50-10.00)
[2025-04-29 06:49] LABS: African American GFR (CKD) 74 (>60 ml/min/1.73 sqM); Anion Gap 9 mmol/L; Blood Urea Nitrogen 18 mg/dL (7-17); Calcium 9.5 mg/dL (8.4-10.2); Carbon Dioxide 24 mmol/L (22-30); Chloride 104 mmol/L (98-107); Glucose 123 mg/dL (74-99); Non-African American GFR(CKD) 64 (>60 ml/min/1.73 sqM); Potassium 4.4 mmol/L (3.5-5.1); Sodium 137 mmol/L (137-145)
--- NOTE | 2025-04-29 07:37 | XR ---
EXAMINATION TYPE: XR chest 1V portable DATE OF EXAM: 04/29/2025 7:03 AM COMPARISON: Multiple radiographs, with the most recent on 04/28/2025 TECHNIQUE: XR chest 1V portable Portable AP radiograph of the chest. CLINICAL INDICATION:Female, 69 years old with history of Status post right upper lobectomy; FINDINGS: Lungs/Pleura: No pleural effusion. Postsurgical changes from right upper lobectomy with elevation of the right hemidiaphragm due to volume loss. Slightly increased small right apical pneumothorax. There are 2 right-sided thoracotomy tubes within the right lung apex. Pulmonary vascularity: Unremarkable. Heart/mediastinum: Cardiomediastinal silhouette is unremarkable. Musculoskeletal: No acute osseous pathology. IMPRESSION: Post right upper lobectomy changes with slightly increased small right apical pneumothorax with [address] [facility], , 04/29/2025 7:34 AM
--- NOTE | 2025-04-29 08:44 | P.PN ---
Subjective Progress Note Date: 04/29/25 Principal diagnosis: Right upper lobe spiculated cavitary 1.4 cm lung nodule, right upper lobe biopsy-proven non-small cell carcinoma. Past medical history significant for chronic obstructive pulmonary disease, hypertension, hyperlipidemia, seizure disorder and chronic ongoing tobacco dependence. POD #6 Robotic assisted thoracoscopic right upper lobectomy with mediastinal ly mph node dissection, and 2 level intercostal nerve block. Prolonged airleak greater than 5 days The patient was seen and examined in follow-up today April 29, 2025 at her bedside on the third floor cardiac stepdown unit. She is currently sitting up in bed, and is tolerating her breakfast. She denies any complaints of pain at this time, although she is complaining of some episodes of shortness of breath with activity. She is in no acute distress at this time. Oxygen saturations are 94% on room air and she is achieving 1000 mL on her incentive spirometry with encouragement. Right pleural chest tube remains in place to low continuous wall suction -20 cm H2O. Intermittent airleak is present with talking and coughing. Draining thin serosanguineous drainage with 220 mL output in the last 24 hours. She remains afebrile in the last 24 hours. She reports she has been up ambulating in the third floor cardiac stepdown unit hallway and tolerating well. Chest x-ray results reviewed. Oliver catheter remains in place for urine retention, urine output 460 mL in the last 8 hours. Objective - Vital Signs Vital signs: Vital Signs Temp 98.4 F 04/29/25 04:00 Pulse 84 04/29/25 08:00 Resp 16 04/29/25 04:00 BP 99/60 04/29/25 04:00 Pulse Ox 99 04/29/25 04:00 FiO2 Intake & Output 04/28/25 04/29/25 04/29/25 18:59 06:59 18:59 Intake Total 480 250 Output Total 850 530 500 Balance -370 -530 -250 Weight 74 kg Intake: IV 10 Invasive Line 3 10 Oral 480 240 Output: Chest Tube Drainage 70 Chest Tube Right Lateral 70 Chest Urine 850 460 500 Straight 500 Other: Voiding Method Indwelling Catheter Indwelling Catheter - Exam CONSTITUTIONAL: Appears comfortable, cooperative, no acute distress RESPIRATORY: Lungs sounds essentially clear throughout, diminished to her bilateral bases. Respirations symmetrical, nonlabored. Currently on room air with oxygen saturation 94%. Able to achieve 1000 mL on her incentive spirometry. Strong cough. CARDIOVASCULAR: S1, S2 present. Regular rate and rhythm, sinus rhythm on telemetry. Palpable peripheral pulses bilaterally. No edema present. No calf pain or tenderness noted. SCDs present. GASTROINTESTINAL: Abdomen soft, nontender, nondistended. Active bowel sounds present 4 quadrants. Tolerating diet. Passing flatus. GENITOURINARY: Oliver catheter in place with clear yellow urine. 460 mL of urine output in the last 8 hours. INTEGUMENTARY: Skin is warm and dry with evidence of good perfusion. Right chest thoracic incision well approximated and covered with dry intact dressing. NEUROLOGIC: Cranial nerves II through XII intact. No focal deficits. MUSKULOSKELETAL: Able to move all extremities, strength equal bilaterally, gait normal PSYCHIATRIC: Alert and oriented to person place and time, appropriate affect, intact judgment and insight. INVASIVE LINES AND TUBES: Right pleural chest tubes present and connected to wall suction -20 cm H2O, airleak present with coughing, and speaking. Right pleural chest tube with 220 mL of thin serosanguineous drainage in the last 24 hours. - Allied health notes Allied health notes reviewed: nursing - Labs CBC & Chem 7: 04/29/25 05:50 04/29/25 05:50 Labs: Abnormal Lab Results - Last 24 Hours (Table) 04/29/25 04/29/25 Range/Units 05:50 05:50 WBC 11.60 H (4.50-10.00) 10*3/uL RBC 3.94 L (4.10-5.20) 10*6/uL Hct 36.2 L (37.2-46.3) % BUN 18 H (7-17) mg/dL Glucose 123 H (74-99) mg/dL - Imaging and Cardiology Chest x-ray: report reviewed, image reviewed Assessment and Plan Assessment: Right upper lobe spiculated cavitary 1.4 cm lung nodule, right upper lobe biopsy-proven non-small cell carcinoma, status post robotic assisted tho racoscopic right upper lobectomy with mediastinal lymph node dissection Postoperative urine retention, unexpected, possibly secondary to recent anesthesia Prolonged airleak greater than 5 days Chronic obstructive pulmonary disease Hypertension Hyperlipidemia Seizure disorder Chronic ongoing tobacco dependence, vaping Plan: We will place her right pleural chest tube to waterseal, disconnect from low continuous wall suction. Continue to monitor for airleak resolution. We will follow-up with a chest x-ray in 2 hours after placing to waterseal. Encourage use of incentive spirometry 10 times every hour while awake. Continue to monitor daily labs and chest x-rays. Pain control per current as needed orders. Toradol added for additional pain control. Pathology results remain pending, will continue to follow pathology results. Increase activity as tolerated. Out of bed for all meals. Discontinue Oliver catheter today. Continue Flomax per urology recommendations. May bladder scan every 6 hours and as needed postvoid residuals, if greater than 300 mL of urine, please notify urology. More recommendations to follow based on patient's clinical course. Time with Patient: Greater than 30
--- NOTE | 2025-04-29 08:46 | XR ---
EXAMINATION TYPE: XR chest 1V portable DATE OF EXAM: 04/29/2025 8:38 AM COMPARISON: Chest radiographs from same day CLINICAL INDICATION: Female, 69 years old with history of Removed chest tube from wall suction; [facility] TECHNIQUE: XR chest 1V portable Frontal view of the chest. FINDINGS: Lungs/Pleura: There is no evidence of pleural effusion, focal consolidation, or pneumothorax. Pulmonary vascularity: Unremarkable. Heart/mediastinum: Cardiomediastinal silhouette is unremarkable. Musculoskeletal: No acute osseous pathology. Other findings: None Lines/Tubes: 2 thoracotomy tube is present with increased pneumothorax compared to prior. IMPRESSION: Increased pneumothorax size compared to immediate prior. [facility], , 04/29/2025 8:43 AM
[2025-04-29] MEDS: KETOROLAC 15 MG/ML 1 ML VIAL IVP SCH (09:12)
--- NOTE | 2025-04-29 12:46 | P.PN ---
Subjective Progress Note Date: 04/29/25 Principal diagnosis: Right upper lobectomy. Patient is a 69-year-old female with past medical history significant for right upper lobe pulmonary nodule, COPD, and tobacco smoker. Previously, underwent robotic assisted bronchoscopy with transbronchial biopsies performed by Dr. Matty baptiste back on 02/28/2025. 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 Patient was referred to cardiothoracic surgery and did undergo robotic assisted thorascopic right upper lobectomy with mediastinal lymph node dissection yesterday. No perioperative complications were reported. Postoperative chest x-ray showing a small residual right apical pneumothorax and additional postsurgical changes with two right chest tube in place. She is being seen on the cardiac stepdown unit following her procedure. She is resting comfortably on room air in the bedside recliner. Right-sided chest tube hooked to an atrium with -20 cm H2O. continues to have intermittent a ir leaking. Approximately 250 cc of serosanguineous output in the collection chamber. Incentive spirometer is at bedside, achieving approximately 500 cc. She is on room air. Denies any shortness of breath. Endorsing some postoperative right-sided chest pain, but adequately controlled with current analgesics Seen today on 04/25/2025, patient is doing great. Patient is awake, oriented, not in any distress, she did develop urinary retention and required placement of Oliver catheter. Her O2 sat is 93% on room air, achieving 750 mL on her incentive spirometry, continues to have some serosanguineous drainage from her chest tube, surgical pathology is pending. Patient is relatively asymptomatic. WBC count is 16.1 hemoglobin is 12.7 electrolytes are normal renal profile is normal, chest x-ray showed mostly postoperative changes with right-sided pneumothorax, seems to be more today compared to yesterday, that is being addressed by cardiothoracic surgery, I believe her chest tube may have to be placed back on suction, was taken off suction earlier today by thoracic surgery. Patient was seen today on 04/26/2025, continues to do well clinically, asymptomatic, back on wall suction, patient continues to have good air leak, not in any distress, feels great. Patient is hemodynamically stable, draining 80 mL output in the last 8 hours and 150 mL in the last 24 hours from her chest tube. Continues to have Oliver catheter in place, she is now on Flomax. WBC count is 11.5 hemoglobin 12 electrolytes are normal BUN is 23 creatinine 0.89 Patient was seen today on 04/27/2025, patient is doing well, continues to have airleak, but she is not in any distress, continues to have apical pneumothorax, patient denies any cough wheezing or shortness of breath, denies any chest pain. Labs today are basically unremarkable including CBC and basic metabolic profile. Patient is achieving about 1000 cc on her incentive spirometry her chest tube is draining thin serosanguineous drainage less than 130 mL in the last 24 hours. Her Oliver catheter remains in place, could consider discontinuation but she is followed by urology. Seen today on 04/28/2025, patient is about the same, not much is happening over the last couple of days. Continues to have airleak continues to have chest tube on suction, continues to have small pneumothorax on chest x-ray, however clinically the patient is doing great, chest tube is not ready to be removed yet, she is achieving about 1000 cc on incentive spirometry, she is ambulating, continues to have Oliver catheter in place. As recommended by urology. Labs we re reviewed WBC count is 11 hemoglobin 12.2 electrolytes are normal renal profile is normal Progress note dated April 29, 2025. 69-year-old female who is postoperative day #6, status post right upper lobectomy, with mediastinal lymph node dissection. She has a history of non- small cell lung cancer, squamous cell, and is currently resting comfortably in room 354. She is on room air. She is not receiving any IV fluids. She does continue to have a leak, from the right sided chest tube. She otherwise is feeling well. Labs include a white count of 1.6, hemoglobin 12, hematocrit 36.2, platelet count 288,000. Sodium 137, potassium 4.4, chlorides 104, CO2 24, BUN 18, and creatinine 0.92. Glucose is 123, and calcium is 9.5. Chest x-ray shows no pneumothorax, which appears larger than the previous chest x-ray. Objective - Vital Signs Vital signs: Vital Signs Temp 98.3 F 04/29/25 12:00 Pulse 88 04/29/25 12:09 Resp 16 04/29/25 12:09 BP 101/63 04/29/25 12:00 Pulse Ox 96 04/29/25 12:00 FiO2 Intake & Output 04/28/25 04/29/25 04/29/25 18:59 06:59 18:59 Intake Total 480 250 Output Total 850 530 520 Balance -370 -530 -270 Weight 74 kg Intake: IV 10 Invasive Line 3 10 Oral 480 240 Output: Chest Tube Drainage 70 20 Chest Tube Right Lateral 70 20 Chest Urine 850 460 500 Straight 500 Other: Voiding Method Indwelling Catheter Indwelling Catheter - Exam No acute distress, oriented 3. Currently on room air. HEENT examination is grossly unremarkable. Mucous membranes are moist. No oral lesions. Neck supple. Full range of motion. No adenopathy thyromegaly or neck vein distention. Cardiovascular examination reveals regular rhythm rate. S1-S2 normal. No S3 or S4. No discernible murmur noted. Lungs reveal scattered mild rhonchi. No wheezes. No crackles. Breath sounds are equal. Right sided chest tube remains. Abdomen soft bowel sounds are heard. No masses or tenderness. Extremities are intact. No cyanosis clubbing or edema. Skin is without rash or lesion. Neurologic examination is brief but nonfocal. - Labs CBC & Chem 7: 04/29/25 05:50 04/29/25 05:50 Labs: Abnormal Lab Results - Last 24 Hours (Table) 04/29/25 04/29/25 Range/Units 05:50 05:50 WBC 11.60 H (4.50-10.00) 10*3/uL RBC 3.94 L (4.10-5.20) 10*6/uL Hct 36.2 L (37.2-46.3) % BUN 18 H (7-17) mg/dL Glucose 123 H (74-99) mg/dL Assessment and Plan Assessment: Postoperative day #6, secondary to robotically assisted thoracoscopic right upper lobectomy with mediastinal lymph node dissection. History of moderately differentiated squamous cell carcinoma, diagnosed by robotic bronchoscopy, February 28, 2025. History of COPD. Chronic and ongoing nicotine dependence. History of seizure disorder. History of hypertension. History of hyperlipidemia. Plan: Plan dated April 29, 2025. The patient is seen today in room 354. She is resting comfortably in chair next to the hospital bed. She is not receiving any supplemental oxygen. She is not receiving any IV fluids. She is postoperative day #6, with a previous right upper lobectomy and mediastinal lymph node dissection. She has a history of squamous cell carcinoma of the lung. Labs, x-rays, and all medications are reviewed. We will continue to follow make recommendations along the way. Overall prognosis remains guarded. Dictation was produced using [employer] software. Please excuse any grammatical, word or spelling errors. Time with Patient: Less than 30
[2025-04-29 14:35] VITALS: BMI 28.9
[2025-04-30 07:17] LABS: HCT 36.4 % (37.2-46.3); HGB 12.1 g/dL (12.0-15.0); MCH 30.8 pg (27.0-32.0); MCHC 33.2 g/dL (32.0-37.0); MCV 92.6 fL (80.0-97.0); Platelet Count 287 10*3/uL (140-440); RBC 3.93 10*6/uL (4.10-5.20); RDW 12.3 % (11.5-14.5); WBC 12.78 10*3/uL (4.50-10.00)
--- NOTE | 2025-04-30 07:22 | XR ---
EXAMINATION TYPE: XR chest 1V portable DATE OF EXAM: 04/30/2025 6:52 AM COMPARISON: Multiple radiographs, with the most recent on 04/29/2025 TECHNIQUE: XR chest 1V portable Portable AP radiograph of the chest. CLINICAL INDICATION:Female, 69 years old with history of s/p right upper lobectomy; FINDINGS: Lungs/Pleura: No pleural effusion. Postsurgical changes from right upper lobectomy with elevation of the right hemidiaphragm due to volume loss. Decrease now trace right apical pneumothorax. There are 2 right-sided thoracotomy tubes within the right lung apex. Pulmonary vascularity: Unremarkable. Heart/mediastinum: Cardiomediastinal silhouette is nonenlarged and slightly shifted to the right due to right lung volume loss post lobectomy. Musculoskeletal: No acute osseous pathology. IMPRESSION: Post right upper lobectomy changes with decreased now trace right apical pneumothorax. There are 2 st able right-sided thoracotomy tubes in place. [facility], , 04/30/2025 7:19 AM
[2025-04-30 07:38] LABS: African American GFR (CKD) 63 (>60 ml/min/1.73 sqM); Anion Gap 8 mmol/L; Blood Urea Nitrogen 25 mg/dL (7-17); Calcium 9.5 mg/dL (8.4-10.2); Carbon Dioxide 23 mmol/L (22-30); Chloride 105 mmol/L (98-107); Glucose 129 mg/dL (74-99); Non-African American GFR(CKD) 55 (>60 ml/min/1.73 sqM); Potassium 4.8 mmol/L (3.5-5.1); Sodium 136 mmol/L (137-145)
--- NOTE | 2025-04-30 08:25 | P.PN ---
Subjective Progress Note Date: 04/30/25 Principal diagnosis: Right upper lobe spiculated cavitary 1.4 cm lung nodule, right upper lobe biopsy-proven non-small cell carcinoma. Past medical history significant for chronic obstructive pulmonary disease, hypertension, hyperlipidemia, seizure disorder and chronic ongoing tobacco dependence. POD #7 Robotic assisted thoracoscopic right upper lobectomy with mediastinal ly mph node dissection, and 2 level intercostal nerve block. Prolonged airleak greater than 5 days The patient was seen and examined in follow-up today April 30, 2025 at her bedside on the third floor cardiac stepdown unit. She is currently sitting up to the bedside chair, is awake, alert, oriented x 3 and is in no acute apparent distress. Denies any complaints of pain or shortness of breath at this time and states that she feels the best she has since her surgery. The patient reports she has been up ambulating in the 3 S. cardiac stepdown unit hallway independently and tolerating well. Oxygen saturations are 95% on room air and she is achieving 1000 mL on her incentive spirometry with encouragement. Right pleural chest tube remains in place with tiny airleak with coughing. Draining thin serosanguineous drainage with 100 mL output in the last 24 hours. Chest x- ray and laboratory results reviewed. Objective - Vital Signs Vital signs: Vital Signs Temp 97.8 F 04/30/25 04:00 Pulse 89 04/30/25 04:00 Resp 18 04/30/25 04:00 BP 122/69 04/30/25 04:00 Pulse Ox 95 04/30/25 04:00 FiO2 Intake & Output 04/29/25 04/30/25 04/30/25 18:59 06:59 18:59 Intake Total 900 20 Output Total 1020 30 Balance -120 -10 Weight 74 kg 71.2 kg Intake: IV 20 20 Invasive Line 3 20 20 Oral 880 Output: Chest Tube Drainage 20 30 Chest Tube Right Lateral 20 30 Chest Urine 1000 Straight 500 Other: Voiding Method Toilet # Voids 1 - Exam CONSTITUTIONAL: Appears comfortable, cooperative, no acute distress RESPIRATORY: Lungs sounds essentially clear throughout, diminished to her bi lateral bases. Respirations symmetrical, nonlabored. Currently on room air with oxygen saturation 95%. Able to achieve 1000 mL on her incentive spirometry. Strong cough. CARDIOVASCULAR: S1, S2 present. Regular rate and rhythm, sinus rhythm on telemetry. Palpable peripheral pulses bilaterally. No edema present. No calf pain or tenderness noted. SCDs present. GASTROINTESTINAL: Abdomen soft, nontender, nondistended. Active bowel sounds present 4 quadrants. Tolerating diet. Passing flatus. GENITOURINARY: Oliver catheter in place with clear yellow urine. 460 mL of urine output in the last 8 hours. INTEGUMENTARY: Skin is warm and dry with evidence of good perfusion. Right chest thoracic incision well approximated and covered with dry intact dressing. NEUROLOGIC: Cranial nerves II through XII intact. No focal deficits. MUSKULOSKELETAL: Able to move all extremities, strength equal bilaterally, gait normal PSYCHIATRIC: Alert and oriented to person place and time, appropriate affect, intact judgment and insight. INVASIVE LINES AND TUBES: Right pleural chest tubes present and is to waterseal, intermittent tiny airleak present with coughing. Right pleural chest tube with 100 mL of thin serosanguineous drainage in the last 24 hours. - Allied health notes Allied health notes reviewed: nursing - Labs CBC & Chem 7: 04/30/25 06:43 04/30/25 06:43 Labs: Abnormal Lab Results - Last 24 Hours (Table) 04/30/25 04/30/25 Range/Units 06:43 06:43 WBC 12.78 H (4.50-10.00) 10*3/uL RBC 3.93 L (4.10-5.20) 10*6/uL Hct 36.4 L (37.2-46.3) % Sodium 136 L (137-145) mmol/L BUN 25 H (7-17) mg/dL Creatinine 1.05 H (0.52-1.04) mg/dL Glucose 129 H (74-99) mg/dL - Imaging and Cardiology Chest x-ray: report reviewed, image reviewed Assessment and Plan Assessment: Right upper lobe spiculated cavitary 1.4 cm lung nodule, right upper lobe biop sy-proven non-small cell carcinoma, status post robotic assisted thoracoscopic right upper lobectomy with mediastinal lymph node dissection Postoperative urine retention, unexpected, possibly secondary to recent anesthesia Prolonged airleak greater than 5 days Constipation Chronic obstructive pulmonary disease Hypertension Hyperlipidemia Seizure disorder Chronic ongoing tobacco dependence, vaping Plan: Continue right pleural chest tube to waterseal,. Continue to monitor for airleak resolution. Encourage use of incentive spirometry 10 times every hour while awake. Continue to monitor daily labs and chest x-rays. Pain control per current as needed orders. Toradol discontinued as her BUN and creatinine have trended up. Pathology received, the pathology results will be discussed with the patient by the surgeon. Increase activity as tolerated. Out of bed for all meals. Ambulate in the fontanez as tolerated. Continue Flomax per urology recommendations. May bladder scan every 6 hours and as needed postvoid residuals, if greater than 300 mL of urine, please notify urology. Dulcolax suppository x 1 now and lactulose 20 g p.o. x 1 now for constipation. More recommendations to follow based on patient's clinical course. Time with Patient: Greater than 30
[2025-04-30] MEDS: LACTULOSE 20 GM/30 ML CUP PO ONE (08:57)
--- NOTE | 2025-04-30 12:13 | P.PN ---
Subjective Progress Note Date: 04/30/25 Principal diagnosis: Right upper lobectomy. Patient is a 69-year-old female with past medical history significant for right upper lobe pulmonary nodule, COPD, and tobacco smoker. Previously, underwent robotic assisted bronchoscopy with transbronchial biopsies performed by Dr. Matty baptiste back on 02/28/2025. 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 Patient was referred to cardiothoracic surgery and did undergo robotic assisted thorascopic right upper lobectomy with mediastinal lymph node dissection yesterday. No perioperative complications were reported. Postoperative chest x-ray showing a small residual right apical pneumothorax and additional postsurgical changes with two right chest tube in place. She is being seen on the cardiac stepdown unit following her procedure. She is resting comfortably on room air in the bedside recliner. Right-sided chest tube hooked to an atrium with -20 cm H2O. continues to have intermittent a ir leaking. Approximately 250 cc of serosanguineous output in the collection chamber. Incentive spirometer is at bedside, achieving approximately 500 cc. She is on room air. Denies any shortness of breath. Endorsing some postoperative right-sided chest pain, but adequately controlled with current analgesics Seen today on 04/25/2025, patient is doing great. Patient is awake, oriented, not in any distress, she did develop urinary retention and required placement of Oliver catheter. Her O2 sat is 93% on room air, achieving 750 mL on her incentive spirometry, continues to have some serosanguineous drainage from her chest tube, surgical pathology is pending. Patient is relatively asymptomatic. WBC count is 16.1 hemoglobin is 12.7 electrolytes are normal renal profile is normal, chest x-ray showed mostly postoperative changes with right-sided pneumothorax, seems to be more today compared to yesterday, that is being addressed by cardiothoracic surgery, I believe her chest tube may have to be placed back on suction, was taken off suction earlier today by thoracic surgery. Patient was seen today on 04/26/2025, continues to do well clinically, asymptomatic, back on wall suction, patient continues to have good air leak, not in any distress, feels great. Patient is hemodynamically stable, draining 80 mL output in the last 8 hours and 150 mL in the last 24 hours from her chest tube. Continues to have Oliver catheter in place, she is now on Flomax. WBC count is 11.5 hemoglobin 12 electrolytes are normal BUN is 23 creatinine 0.89 Patient was seen today on 04/27/2025, patient is doing well, continues to have airleak, but she is not in any distress, continues to have apical pneumothorax, patient denies any cough wheezing or shortness of breath, denies any chest pain. Labs today are basically unremarkable including CBC and basic metabolic profile. Patient is achieving about 1000 cc on her incentive spirometry her chest tube is draining thin serosanguineous drainage less than 130 mL in the last 24 hours. Her Oliver catheter remains in place, could consider discontinuation but she is followed by urology. Seen today on 04/28/2025, patient is about the same, not much is happening over the last couple of days. Continues to have airleak continues to have chest tube on suction, continues to have small pneumothorax on chest x-ray, however clinically the patient is doing great, chest tube is not ready to be removed yet, she is achieving about 1000 cc on incentive spirometry, she is ambulating, continues to have Oliver catheter in place. As recommended by urology. Labs we re reviewed WBC count is 11 hemoglobin 12.2 electrolytes are normal renal profile is normal Progress note dated April 29, 2025. 69-year-old female who is postoperative day #6, status post right upper lobectomy, with mediastinal lymph node dissection. She has a history of non- small cell lung cancer, squamous cell, and is currently resting comfortably in room 354. She is on room air. She is not receiving any IV fluids. She does continue to have a leak, from the right sided chest tube. She otherwise is feeling well. Labs include a white count of 1.6, hemoglobin 12, hematocrit 36.2, platelet count 288,000. Sodium 137, potassium 4.4, chlorides 104, CO2 24, BUN 18, and creatinine 0.92. Glucose is 123, and calcium is 9.5. Chest x-ray shows no pneumothorax, which appears larger than the previous chest x-ray. Progress note dated April 30, 2025. 69-year-old female who is postoperative day #7, status post right upper lobectomy, with mediastinal lymph node dissection. She has a history of non- small cell lung cancer, squamous cell, and is seen today in room 354. She is currently on room air. She is not receiving any IV fluids. She has a right- sided chest tube, and there still is a leak, albeit smaller. Clinically, she is stable. She is awake and alert. No respiratory distress. White count is 12.8, hemoglobin 12.1, hematocrit 36.4, and platelet count is normal. Sodium 136, potassium 4.8, chlorides 105, CO2 23, BUN 25, creatinine 1.05. Calcium was 9.5, glucose is 129. Chest x-ray shows post right upper lobectomy changes, with decreased right apical pneumothorax. Chest tubes are noted. Objective - Vital Signs Vital signs: Vital Signs Temp 97.7 F 04/30/25 08:50 Pulse 76 04/30/25 08:50 Resp 17 04/30/25 08:50 BP 120/70 04/30/25 08:50 Pulse Ox 96 04/30/25 08:50 FiO2 Intake & Output 04/29/25 04/30/25 04/30/25 18:59 06:59 18:59 Intake Total 900 20 250 Output Total 1020 30 250 Balance -120 -10 0 Weight 74 kg 71.2 kg Intake: IV 20 20 10 Invasive Line 3 20 20 10 Oral 880 240 Output: Chest Tube Drainage 20 30 0 Chest Tube Right Lateral 20 30 0 Chest Urine 1000 250 Straight 500 Other: Voiding Method Toilet Toilet # Voids 1 - Exam No acute distress, oriented 3. Currently on room air. HEENT examination is grossly unremarkable. Mucous membranes are moist. No oral lesions. Neck supple. Full range of motion. No adenopathy thyromegaly or neck vein distention. Cardiovascular examination reveals regular rhythm rate. S1-S2 normal. No S3 or S4. No discernible murmur noted. Lungs reveal scattered mild rhonchi. No wheezes. No crackles. Breath sounds are equal. Right sided chest tube remains. Abdomen soft bowel sounds are heard. No masses or tenderness. Extremities are intact. No cyanosis clubbing or edema. Skin is without rash or lesion. Neurologic examination is brief but nonfocal. - Labs CBC & Chem 7: 04/30/25 06:43 04/30/25 06:43 Labs: Abnormal Lab Results - Last 24 Hours (Table) 04/30/25 04/30/25 Range/Units 06:43 06:43 WBC 12.78 H (4.50-10.00) 10*3/uL RBC 3.93 L (4.10-5.20) 10*6/uL Hct 36.4 L (37.2-46.3) % Sodium 136 L (137-145) mmol/L BUN 25 H (7-17) mg/dL Creatinine 1.05 H (0.52-1.04) mg/dL Glucose 129 H (74-99) mg/dL Assessment and Plan Assessment: Postoperative day #7, secondary to robotically assisted thoracoscopic right upper lobectomy with mediastinal lymph node dissection. History of moderately differentiated squamous cell carcinoma, diagnosed by robotic bronchoscopy, February 28, 2025. History of COPD. Chronic and ongoing nicotine dependence. History of seizure disorder. History of hypertension. History of hyperlipidemia. Plan: Plan dated April 29, 2025. The patient is seen today in room 354. She is resting comfortably in chair next to the hospital bed. She is not receiving any supplemental oxygen. She is not receiving any IV fluids. She is postoperative day #6, with a previous right upper lobectomy and mediastinal lymph node dissection. She has a history of squamous cell carcinoma of the lung. Labs, x-rays, and all medications are reviewed. We will continue to follow make recommendations along the way. Overall prognosis remains guarded. Dictation was produced using [employer] software. Please excuse any grammatical, word or spelling errors. Plan dated April 30, 2025. The patient is seen today again in room 354. She remains on room air. She is resting comfortably in bed. She is in no distress. She denies any shortness of breath, cough, wheezing, chest tightness, or phlegm production. She denies any significant chest pain or chest discomfort. She is postoperative day #7. She still has a leak from the right sided chest tube. Labs, x-rays, and medications are reviewed. We will continue to follow, make recommendations along the way. Prognosis is guarded. Dictation was produced using [employer] software. Please excuse any grammatical, word or spelling errors. Time with Patient: Less than 30
[2025-05-01 07:33] LABS: HCT 37.4 % (37.2-46.3); HGB 12.4 g/dL (12.0-15.0); MCH 31.5 pg (27.0-32.0); MCHC 33.2 g/dL (32.0-37.0); MCV 94.9 fL (80.0-97.0); Platelet Count 305 10*3/uL (140-440); RBC 3.94 10*6/uL (4.10-5.20); RDW 12.4 % (11.5-14.5); WBC 13.75 10*3/uL (4.50-10.00)
--- NOTE | 2025-05-01 07:34 | XR ---
EXAMINATION TYPE: XR chest 2V DATE OF EXAM: 05/01/2025 6:19 AM COMPARISON: Multiple radiographs, with the most recent on 04/30/2025 TECHNIQUE: XR chest 2V Frontal and lateral views of the chest. CLINICAL INDICATION:Female, 69 years old with history of Postop right upper lobectomy; FINDINGS: Lungs/Pleura: No pleural effusion. Postsurgical changes from right upper lobectomy with elevation of the right hemidiaphragm due to volume loss. Similar small right apical pneumothorax. There are 2 righ t-sided thoracotomy tubes within the right lung apex. Pulmonary vascularity: Unremarkable. Heart/mediastinum: Cardiomediastinal silhouette is nonenlarged and slightly shifted to the right due to right lung volume loss post lobectomy. Musculoskeletal: No acute osseous pathology. IMPRESSION: Post right upper lobectomy changes with similar small right apical pneumothorax. There are 2 stable r ight-sided thoracotomy tubes in place. [facility], , 05/01/2025 7:31 AM
[2025-05-01 07:57] LABS: African American GFR (CKD) 72 (>60 ml/min/1.73 sqM); Anion Gap 7 mmol/L; Blood Urea Nitrogen 18 mg/dL (7-17); Calcium 9.4 mg/dL (8.4-10.2); Carbon Dioxide 27 mmol/L (22-30); Chloride 106 mmol/L (98-107); Glucose 107 mg/dL (74-99); Non-African American GFR(CKD) 63 (>60 ml/min/1.73 sqM); Potassium 4.8 mmol/L (3.5-5.1); Sodium 140 mmol/L (137-145)
--- NOTE | 2025-05-01 10:36 | P.PN ---
Subjective Progress Note Date: 05/01/25 Principal diagnosis: Right upper lobe spiculated cavitary 1.4 cm lung nodule, right upper lobe biopsy-proven non-small cell carcinoma. Past medical history significant for chronic obstructive pulmonary disease, hypertension, hyperlipidemia, seizure disorder and chronic ongoing tobacco dependence. POD #8 Robotic assisted thoracoscopic right upper lobectomy with mediastinal ly mph node dissection, and 2 level intercostal nerve block. Prolonged airleak greater than 5 days The patient was seen and examined in follow-up today May 01, 2025 at her bedside on the third floor cardiac stepdown unit. She currently denies any complaints of pain or shortness of breath at this time. She is awake, alert, oriented x 3 and is in no acute apparent distress. Oxygen saturations are 94% on room air and she is achieving 1000 mL on her incentive spirometry with encouragement. Remote telemetry is showing normal sinus rhythm. She has been up ambulating in the hallway with standby assistance from nursing staff and tolerating well. Right pleural chest tubes remain in place to waterseal. Tiny intermittent airleak noted with coughing. Draining thin serosanguineous drainage with 20 mL output last 8 hours and 100 mL output in the last 24 hours. Chest x-ray and laboratory results were reviewed. Patient had been complaining of some constipation but had a bowel movement yesterday 04/30/2025. Objective - Vital Signs Vital signs: Vital Signs Temp 98 F 05/01/25 08:05 Pulse 85 05/01/25 08:05 Resp 17 05/01/25 08:05 BP 110/73 05/01/25 08:05 Pulse Ox 96 05/01/25 08:05 FiO2 Intake & Output 04/30/25 05/01/25 05/01/25 18:59 06:59 18:59 Intake Total 600 10 Output Total 250 50 985 Balance 350 -50 -975 Weight 70.4 kg Intake: IV 20 10 Invasive Line 3 20 10 Oral 580 Output: Chest Tube Drainage 0 50 10 Chest Tube Right Lateral 0 50 10 Chest Urine 250 975 Other: Voiding Method Toilet Toilet Toilet # Voids 3 # Bowel Movements 1 - Exam CONSTITUTIONAL: Appears comfortable, cooperative, no acute distress RESPIRATORY: Lungs sounds essentially clear throughout, diminished to her bilateral bases. Respirations symmetrical, nonlabored. Currently on room air with oxygen saturation 94%. Able to achieve 1000 mL on her incentive spirometry. Strong cough. CARDIOVASCULAR: S1, S2 present. Regular rate and rhythm, sinus rhythm on telemetry. Palpable peripheral pulses bilaterally. No edema present. No calf pain or tenderness noted. SCDs present. GASTROINTESTINAL: Abdomen soft, nontender, nondistended. Active bowel sounds present 4 quadrants. Tolerating diet. Passing flatus. Bowel movement yesterday 04/30/2025. GENITOURINARY: Oliver catheter in place with clear yellow urine. 975 mL of urine output in the last 8 hours. INTEGUMENTARY: Skin is warm and dry with evidence of good perfusion. Right chest thoracic incision well approximated and covered with dry intact dressing. NEUROLOGIC: Cranial nerves II through XII intact. No focal deficits. MUSKULOSKELETAL: Able to move all extremities, strength equal bilaterally, gait normal PSYCHIATRIC: Alert and oriented to person place and time, appropriate affect, intact judgment and insight. INVASIVE LINES AND TUBES: Right pleural chest tubes present and is to waterseal, intermittent tiny airleak present with coughing. Right pleural chest tube with 100 mL of thin serosanguineous drainage in the last 24 hours. - Allied health notes Allied health notes reviewed: nursing - Labs CBC & Chem 7: 05/01/25 06:11 05/01/25 06:11 Labs: Abnormal Lab Results - Last 24 Hours (Table) 05/01/25 05/01/25 Range/Units 06:11 06:11 WBC 13.75 H (4.50-10.00) 10*3/uL RBC 3.94 L (4.10-5.20) 10*6/uL BUN 18 H (7-17) mg/dL Glucose 107 H (74-99) mg/dL - Imaging and Cardiology Chest x-ray: report reviewed, image reviewed Assessment and Plan Assessment: Right upper lobe spiculated cavitary 1.4 cm lung nodule, right upper lobe biopsy-proven non-small cell carcinoma, status post robotic assisted thoracoscopic right upper lobectomy with mediastinal lymph node dissection Postoperative urine retention, unexpected, possibly secondary to recent anesthesia Prolonged airleak greater than 5 days Constipation, resolved bowel movement 04/30/2025 Chronic obstructive pulmonary disease Hypertension Hyperlipidemia Seizure disorder Chronic ongoing tobacco dependence, vaping Plan: Continue right pleural chest tube, we will clamp her chest tube for 4 hours and obtain another chest x-ray. If there is no pneumothorax we will remove her chest tubes and possibly discharge her home today. Encourage use of incentive spirometry 10 times every hour while awake. Continue to monitor daily labs and chest x-rays. Pain control per current as needed orders. Pathology received, the pathology results were reviewed with the patient by Dr. Michaels. Increase activity as tolerated. Out of bed for all meals. Ambulate in the fontanez as tolerated. Continue Flomax per urology recommendations. May bladder scan every 6 hours and as needed postvoid residuals, if greater than 300 mL of urine, please notify urology. More recommendations to follow based on patient's clinical course. Time with Patient: Greater than 30
--- NOTE | 2025-05-01 11:24 | XR ---
EXAMINATION TYPE: XR chest 1V portable DATE OF EXAM: 05/01/2025 11:19 AM COMPARISON: Multiple radiographs, with the most recent on 05/01/2025. TECHNIQUE: XR chest 1V portable Frontal and lateral views of the chest. CLINICAL INDICATION:Female, 69 years old with history of Chest tube is clamped, evaluate for pneumoth orax; FINDINGS: Lungs/Pleura: No pleural effusion. Postsurgical changes from right upper lobectomy with elevation of the right hemidiaphragm due to volume loss. No clear small right apical pneumothorax on today's exam. There are 2 right-sided thoracotomy tubes within the right lung apex. Pulmonary vascularity: Unremarkable. Heart/mediastinum: Cardiomediastinal silhouette is nonenlarged and slightly shifted to the right due to right lung volume loss post lobectomy. Musculoskeletal: No acute osseous pathology. IMPRESSION: Post right upper lobectomy changes with no definitive apical pneumothorax [facility], , 05/01/2025 11:22 AM
--- NOTE | 2025-05-01 12:22 | P.PN ---
Subjective Progress Note Date: 05/01/25 Principal diagnosis: Right upper lobectomy. Patient is a 69-year-old female with past medical history significant for right upper lobe pulmonary nodule, COPD, and tobacco smoker. Previously, underwent robotic assisted bronchoscopy with transbronchial biopsies performed by Dr. Matty baptiste back on 02/28/2025. 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 Patient was referred to cardiothoracic surgery and did undergo robotic assisted thorascopic right upper lobectomy with mediastinal lymph node dissection yesterday. No perioperative complications were reported. Postoperative chest x-ray showing a small residual right apical pneumothorax and additional postsurgical changes with two right chest tube in place. She is being seen on the cardiac stepdown unit following her procedure. She is resting comfortably on room air in the bedside recliner. Right-sided chest tube hooked to an atrium with -20 cm H2O. continues to have intermittent a ir leaking. Approximately 250 cc of serosanguineous output in the collection chamber. Incentive spirometer is at bedside, achieving approximately 500 cc. She is on room air. Denies any shortness of breath. Endorsing some postoperative right-sided chest pain, but adequately controlled with current analgesics Seen today on 04/25/2025, patient is doing great. Patient is awake, oriented, not in any distress, she did develop urinary retention and required placement of Oliver catheter. Her O2 sat is 93% on room air, achieving 750 mL on her incentive spirometry, continues to have some serosanguineous drainage from her chest tube, surgical pathology is pending. Patient is relatively asymptomatic. WBC count is 16.1 hemoglobin is 12.7 electrolytes are normal renal profile is normal, chest x-ray showed mostly postoperative changes with right-sided pneumothorax, seems to be more today compared to yesterday, that is being addressed by cardiothoracic surgery, I believe her chest tube may have to be placed back on suction, was taken off suction earlier today by thoracic surgery. Patient was seen today on 04/26/2025, continues to do well clinically, asymptomatic, back on wall suction, patient continues to have good air leak, not in any distress, feels great. Patient is hemodynamically stable, draining 80 mL output in the last 8 hours and 150 mL in the last 24 hours from her chest tube. Continues to have Oliver catheter in place, she is now on Flomax. WBC count is 11.5 hemoglobin 12 electrolytes are normal BUN is 23 creatinine 0.89 Patient was seen today on 04/27/2025, patient is doing well, continues to have airleak, but she is not in any distress, continues to have apical pneumothorax, patient denies any cough wheezing or shortness of breath, denies any chest pain. Labs today are basically unremarkable including CBC and basic metabolic profile. Patient is achieving about 1000 cc on her incentive spirometry her chest tube is draining thin serosanguineous drainage less than 130 mL in the last 24 hours. Her Oliver catheter remains in place, could consider discontinuation but she is followed by urology. Seen today on 04/28/2025, patient is about the same, not much is happening over the last couple of days. Continues to have airleak continues to have chest tube on suction, continues to have small pneumothorax on chest x-ray, however clinically the patient is doing great, chest tube is not ready to be removed yet, she is achieving about 1000 cc on incentive spirometry, she is ambulating, continues to have Oliver catheter in place. As recommended by urology. Labs we re reviewed WBC count is 11 hemoglobin 12.2 electrolytes are normal renal profile is normal Progress note dated April 29, 2025. 69-year-old female who is postoperative day #6, status post right upper lobectomy, with mediastinal lymph node dissection. She has a history of non- small cell lung cancer, squamous cell, and is currently resting comfortably in room 354. She is on room air. She is not receiving any IV fluids. She does continue to have a leak, from the right sided chest tube. She otherwise is feeling well. Labs include a white count of 1.6, hemoglobin 12, hematocrit 36.2, platelet count 288,000. Sodium 137, potassium 4.4, chlorides 104, CO2 24, BUN 18, and creatinine 0.92. Glucose is 123, and calcium is 9.5. Chest x-ray shows no pneumothorax, which appears larger than the previous chest x-ray. Progress note dated April 30, 2025. 69-year-old female who is postoperative day #7, status post right upper lobectomy, with mediastinal lymph node dissection. She has a history of non- small cell lung cancer, squamous cell, and is seen today in room 354. She is currently on room air. She is not receiving any IV fluids. She has a right- sided chest tube, and there still is a leak, albeit smaller. Clinically, she is stable. She is awake and alert. No respiratory distress. White count is 12.8, hemoglobin 12.1, hematocrit 36.4, and platelet count is normal. Sodium 136, potassium 4.8, chlorides 105, CO2 23, BUN 25, creatinine 1.05. Calcium was 9.5, glucose is 129. Chest x-ray shows post right upper lobectomy changes, with decreased right apical pneumothorax. Chest tubes are noted. Progress note dated May 01, 2025. 69-year-old female seen again in room 354. She is postoperative day #8, status post right upper lobectomy, with mediastinal lymph node dissection. She has a history of non-small cell lung cancer, squamous cell type. Currently, the patient is on room air. Right chest tube remains in place. It is clamped. Clinically, she stable. She is awake and alert. No acute distress. Current labs include a white count of 13.8, hemoglobin 12.4, hematocrit 37.4, platelet count 305,000. Sodium 140, potassium 4.8, chlorides 106, CO2 27, BUN 18, crea tinine 0.94. Glucose is 107. Calcium 9.4. No pneumothorax seen on chest x- ray. Objective - Vital Signs Vital signs: Vital Signs Temp 97.8 F 05/01/25 12:00 Pulse 61 05/01/25 12:00 Resp 17 05/01/25 12:00 BP 114/52 05/01/25 12:00 Pulse Ox 97 05/01/25 12:00 FiO2 Intake & Output 04/30/25 05/01/25 05/01/25 18:59 06:59 18:59 Intake Total 600 10 Output Total 250 50 985 Balance 350 -50 -975 Weight 70.4 kg Intake: IV 20 10 Invasive Line 3 20 10 Oral 580 Output: Chest Tube Drainage 0 50 10 Chest Tube Right Lateral 0 50 10 Chest Urine 250 975 Other: Voiding Method Toilet Toilet Toilet # Voids 3 # Bowel Movements 1 - Exam No acute distress, oriented 3. Currently on room air. HEENT examination is grossly unremarkable. Mucous membranes are moist. No oral lesions. Neck supple. Full range of motion. No adenopathy thyromegaly or neck vein distention. Cardiovascular examination reveals regular rhythm rate. S1-S2 normal. No S3 or S4. No discernible murmur noted. Lungs reveal scattered mild rhonchi. No wheezes. No crackles. Breath sounds are equal. Right sided chest tube remains. Abdomen soft bowel sounds are heard. No masses or tenderness. Extremities are intact. No cyanosis clubbing or edema. Skin is without rash or lesion. Neurologic examination is brief but nonfocal. - Labs CBC & Chem 7: 05/01/25 06:11 05/01/25 06:11 Labs: Abnormal Lab Results - Last 24 Hours (Table) 05/01/25 05/01/25 Range/Units 06:11 06:11 WBC 13.75 H (4.50-10.00) 10*3/uL RBC 3.94 L (4.10-5.20) 10*6/uL BUN 18 H (7-17) mg/dL Glucose 107 H (74-99) mg/dL Assessment and Plan Assessment: Postoperative day #8, secondary to robotically assisted thoracoscopic right upper lobectomy with mediastinal lymph node dissection. History of moderately differentiated squamous cell carcinoma, diagnosed by robotic bronchoscopy, February 28, 2025. History of COPD. Chronic and ongoing nicotine dependence. History of seizure disorder. History of hypertension. History of hyperlipidemia. Plan: Plan dated April 29, 2025. The patient is seen today in room 354. She is resting comfortably in chair next to the hospital bed. She is not receiving any supplemental oxygen. She is not receiving any IV fluids. She is postoperative day #6, with a previous right upper lobectomy and mediastinal lymph node dissection. She has a history of squamous cell carcinoma of the lung. Labs, x-rays, and all medications are reviewed. We will continue to follow make recommendations along the way. Over all prognosis remains guarded. Dictation was produced using [employer] software. Please excuse any grammatical, word or spelling errors. Plan dated April 30, 2025. The patient is seen today again in room 354. She remains on room air. She is resting comfortably in bed. She is in no distress. She denies any shortness of breath, cough, wheezing, chest tightness, or phlegm production. She denies any significant chest pain or chest discomfort. She is postoperative day #7. She still has a leak from the right sided chest tube. Labs, x-rays, and medications are reviewed. We will continue to follow, make recommendations along the way. Prognosis is guarded. Dictation was produced using [employer] software. Please excuse any grammatical, word or spelling errors. Plan dated May 01, 2025. The patient is seen today in room 354. She is doing relatively well. Her chest tube is clamped. She is on room air. She is not receiving any IV fluids. Hopefully, the chest tube can be removed later today, or at the latest tomorrow. The patient is anxious to be discharged home. Labs, x-rays, and all medications are reviewed. We will continue to follow. Prognosis is guarded. Dictation was produced using [employer] software. Please excuse any grammatical, word or spelling errors. Time with Patient: Less than 30
[2025-05-02 06:25] LABS: Basophils # (A) 0.08 10*3/uL (0.00-0.10); Basophils % (A) 0.8 %; Eosinophils # (A) 0.36 10*3/uL (0.04-0.35); Eosinophils % (A) 3.4 %; HCT 35.8 % (37.2-46.3); HGB 11.8 g/dL (12.0-15.0); Lymphocytes # (A) 3.42 10*3/uL (0.90-5.00); Lymphocytes % (A) 32.2 %; MCH 30.5 pg (27.0-32.0); MCHC 33.0 g/dL (32.0-37.0); MCV 92.5 fL (80.0-97.0); Monocytes # (A) 0.95 10*3/uL (0.20-1.00); Monocytes % (A) 8.9 %; Neutrophils # (A) 5.67 10*3/uL (1.80-7.70); Neutrophils % (A) 53.3 %; Platelet Count 311 10*3/uL (140-440); RBC 3.87 10*6/uL (4.10-5.20); RDW 12.4 % (11.5-14.5); WBC 10.63 10*3/uL (4.50-10.00)
[2025-05-02 06:51] LABS: African American GFR (CKD) 76 (>60 ml/min/1.73 sqM); Anion Gap 7 mmol/L; Blood Urea Nitrogen 17 mg/dL (7-17); Calcium 9.2 mg/dL (8.4-10.2); Carbon Dioxide 25 mmol/L (22-30); Chloride 106 mmol/L (98-107); Glucose 117 mg/dL (74-99); Non-African American GFR(CKD) 66 (>60 ml/min/1.73 sqM); Potassium 4.4 mmol/L (3.5-5.1); Sodium 138 mmol/L (137-145)
--- NOTE | 2025-05-02 07:24 | XR ---
EXAMINATION TYPE: XR chest 2V DATE OF EXAM: 05/02/2025 6:22 AM COMPARISON: Multiple radiographs, with the most recent on 05/01/2025 TECHNIQUE: XR chest 2V Frontal and lateral views of the chest. CLINICAL INDICATION:Female, 69 years old with history of post op right upper lobectomy; FINDINGS: Lungs/Pleura: Left lung is clear. No pleural effusion. Postsurgical changes from right upper lobectom y. Trace right apical pneumothorax with interval removal of 2 thoracotomy tubes from prior exam. Even tration of the right hemidiaphragm. Pulmonary vascularity: Unremarkable. Heart/mediastinum: Cardiomediastinal silhouette is shifted to the right due to right lung volume loss . Musculoskeletal: No acute osseous pathology. IMPRESSION: Postsurgical changes from right upper lobectomy with trace right apical pneumothorax and interval rem oval of 2 right-sided thoracotomy tubes. [facility], , 05/02/2025 7:22 AM
[2025-05-02 08:10] VITALS: BP 105/72; PULSE 81; RESP 16; TEMP 97.8
--- NOTE | 2025-05-02 09:19 | P.DS ---
Providers Date of admission: 04/23/25 09:45 Expected date of discharge: 05/02/25 Attending physician: Lul Paniagua MD Consults: 04/23/25 18:54 Consult Physician Routine Consulting Provider: Bushra Cameron Consult Reason/Comments: post lobectomy Do you want consulting provider notified?: Already Contacted 04/25/25 13:47 Consult Physician Routine Consulting Provider: Brett Paris Consult Reason/Comments: Urine retention post right upper lobectomy Do you want consulting provider notified?: Yes Primary care physician: Jazmine Yeboah Hospital Course: FINAL DIAGNOSIS: Right upper lobe spiculated cavitary 1.4 cm lung nodule, right upper lobe biopsy-proven non-small cell carcinoma, surgical pathology consistent with invasive moderately differentiated squamous cell carcinoma, T1b N0 M0 Postoperative urine retention, unexpected, possibly secondary to recent anesthesia, resolved Prolonged airleak greater than 5 days History of chronic obstructive pulmonary disease Hypertension Hyperlipidemia Seizure disorder Chronic ongoing tobacco dependence, vaping PRINCIPAL PROCEDURE: Robotic assisted thoracoscopic right upper lobectomy with mediastinal lymph node dissection, and 2 level intercostal nerve block. HISTORY OF PRESENT ILLNESS: This is a 69-year-old female who follows outpatient with Dr. Yeboah for primary care and Dr. Cameron for pulmonology. She had a screening CT scan due to her smoking history and was found to have a right upper lobe lesion somewhat suspicious. She underwent PET/CT, this right upper lobe spiculated cavitary lesion was found to be FDG avid. Subsequently she underwent navigational robotic bronchoscopy by Dr. Virk and was found to have squamous cell carcinoma. The patient was referred to Dr. Paniagua from thoracic surgery. She was recommended to undergo robotic assisted thoracoscopic right upper lobectomy. The usual perioperative course was discussed in detail with the patient, all risks and benefits were explained, all questions were answered, and consent was obtained to proceed with surgery. The patient was scheduled for surgery at the earliest possible date. HOSPITAL COURSE: The patient was brought to the hospital on 04/23/25, taken to the preoperative area, prepared in the usual fashion, and subsequently taken to the operating room where Dr. Paniagua performed robotic assisted thoracoscopic right upper lobectomy with mediastinal lymph node dissection. Upon completion of surgery the patient was extubated and taken to the recovery room with eventual admission to 3 S. cardiac stepdown unit for further monitoring. She did experience urine retention requiring replacement of Oliver catheter, this was resolved prior to discharge. She also experienced prolonged air leak, however her chest tube was able to be discontinued on postoperative day #8. Her oxygen was titrated down, she was tolerating oral diet, her pain was controlled, and she was ready to be discharged to home on postoperative day #9. She received written and verbal instruction regarding her medications, activity restrictions, signs and symptoms requiring physician notification, and follow-up appointments. Patient Condition at Discharge: Stable Plan - Discharge Summary Discharge Rx Participant: No New Discharge Prescriptions: New Tamsulosin [Flomax] 0.4 mg PO DAILY #30 cap Metoprolol Tartrate [Lopressor] 25 mg PO BID #60 tab Sennosides-Docusate Sodium [Senokot-S] 2 each PO HS PRN tab PRN Reason: Constipation Acetaminophen Tab [Tylenol] 650 mg PO Q4HR PRN tab PRN Reason: Mild To Moderate Pain (1 - 6) Continue amLODIPine [Norvasc] 2.5 mg PO QAM Aspirin EC [Ecotrin Low Dose] 81 mg PO DAILY Rosuvastatin [Crestor] 20 mg PO DAILY Aspirin/Acetaminophen/Caffeine [Excedrin Migraine Caplet] 1 each PO DAILY PRN PRN Reason: Migraine Headache Calcium Carbonate/Vitamin D3 [Calcium 500-Vit D3 10 Mcg (400 IU) Chew Tb] 1 each PO DAILY levETIRAcetam [Keppra] 375 mg PO Q12HR Multivit-Minerals/Folic Acid [Centrum Women 50 Plus Gummy] 80 mcg PO DAILY Albuterol Inhaler [Ventolin Hfa Inhaler] 2 puff INHALATION Q4H PRN PRN Reason: Pain Discharge Medication List Aspirin EC [Ecotrin Low Dose] 81 mg PO DAILY 02/27/25 [History] Aspirin/Acetaminophen/Caffeine [Excedrin Migraine Caplet] 1 each PO DAILY PRN 02/27/25 [History] Rosuvastatin [Crestor] 20 mg PO DAILY 02/27/25 [History] amLODIPine [Norvasc] 2.5 mg PO QAM 02/27/25 [History] levETIRAcetam [Keppra] 375 mg PO Q12HR 02/27/25 [History] Albuterol Inhaler [Ventolin Hfa Inhaler] 2 puff INHALATION Q4H PRN 04/17/25 [History] Calcium Carbonate/Vitamin D3 [Calcium 500-Vit D3 10 Mcg (400 IU) Chew Tb] 1 each PO DAILY 04/17/25 [History] Multivit-Minerals/Folic Acid [Centrum Women 50 Plus Gummy] 80 mcg PO DAILY 04/17/25 [History] Acetaminophen Tab [Tylenol] 650 mg PO Q4HR PRN tab 05/02/25 [Rx] Metoprolol Tartrate [Lopressor] 25 mg PO BID #60 tab 05/02/25 [Rx] Sennosides-Docusate Sodium [Senokot-S] 2 each PO HS PRN tab 05/02/25 [Rx] Tamsulosin [Flomax] 0.4 mg PO DAILY #30 cap 05/02/25 [Rx] Follow up Appointment(s)/Referral(s): Bushra Cameron MD [STAFF PHYSICIAN] - 05/22/25 9:15 am Jazmine Yeboah MD [Primary Care Provider] - As Needed Alesia Holt NPC [Nurse Practitioner] - 05/22/25 10:00 am (You will be seen in the surgeon's office behind the hospital in [facility], [address] [place] [address] [address]. Office phone number is ; PLEASE COME TO THE SURGEONS OFFICE AFTER YOUR APPOINTMENT WITH DR. CAMERON) Activity/Diet/Wound Care/Special Instructions: DISCHARGE INSTRUCTIONS: 1. No driving for 2 weeks, or until physician gives their ok. 2. No lifting, pushing, or pulling more than 10 pounds for 2 weeks. The physician will advise of any restriction changes. 3. Continue pain control per as needed orders. Alternate acetaminophen (Tylenol) and ibuprofen (Motrin/Advil) for pain. 4. Continue with incentive spirometry and splinting until otherwise directed by the physician. 5. Leave chest tube dressing for 48 hours. After that, remove all dressings and shower daily. 6. Routine incision care. No powders, lotions, ointments on incisions. 7. Please call surgeon/[facility] for temp greater than 101 F or purulent drainage from incisions. 8. Smoking cessation counseling and program information provided. Quitting smoking is the most important step you can take to improve your health. For additional information and assistance to quit smoking, please call the [employer] tobacco quit line (6-384-QKWM-NOW/ ) or online: [email or web address] Discharge Disposition: HOME SELF-CARE
--- NOTE | 2025-05-02 10:37 | P.PN ---
Subjective Progress Note Date: 05/02/25 Principal diagnosis: Right upper lobectomy. Patient is a 69-year-old female with past medical history significant for right upper lobe pulmonary nodule, COPD, and tobacco smoker. Previously, underwent robotic assisted bronchoscopy with transbronchial biopsies performed by Dr. Matty baptiste back on 02/28/2025. 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 Patient was referred to cardiothoracic surgery and did undergo robotic assisted thorascopic right upper lobectomy with mediastinal lymph node dissection yesterday. No perioperative complications were reported. Postoperative chest x-ray showing a small residual right apical pneumothorax and additional postsurgical changes with two right chest tube in place. She is being seen on the cardiac stepdown unit following her procedure. She is resting comfortably on room air in the bedside recliner. Right-sided chest tube hooked to an atrium with -20 cm H2O. continues to have intermittent a ir leaking. Approximately 250 cc of serosanguineous output in the collection chamber. Incentive spirometer is at bedside, achieving approximately 500 cc. She is on room air. Denies any shortness of breath. Endorsing some postoperative right-sided chest pain, but adequately controlled with current analgesics Seen today on 04/25/2025, patient is doing great. Patient is awake, oriented, not in any distress, she did develop urinary retention and required placement of Oliver catheter. Her O2 sat is 93% on room air, achieving 750 mL on her incentive spirometry, continues to have some serosanguineous drainage from her chest tube, surgical pathology is pending. Patient is relatively asymptomatic. WBC count is 16.1 hemoglobin is 12.7 electrolytes are normal renal profile is normal, chest x-ray showed mostly postoperative changes with right-sided pneumothorax, seems to be more today compared to yesterday, that is being addressed by cardiothoracic surgery, I believe her chest tube may have to be placed back on suction, was taken off suction earlier today by thoracic surgery. Patient was seen today on 04/26/2025, continues to do well clinically, asymptomatic, back on wall suction, patient continues to have good air leak, not in any distress, feels great. Patient is hemodynamically stable, draining 80 mL output in the last 8 hours and 150 mL in the last 24 hours from her chest tube. Continues to have Oliver catheter in place, she is now on Flomax. WBC count is 11.5 hemoglobin 12 electrolytes are normal BUN is 23 creatinine 0.89 Patient was seen today on 04/27/2025, patient is doing well, continues to have airleak, but she is not in any distress, continues to have apical pneumothorax, patient denies any cough wheezing or shortness of breath, denies any chest pain. Labs today are basically unremarkable including CBC and basic metabolic profile. Patient is achieving about 1000 cc on her incentive spirometry her chest tube is draining thin serosanguineous drainage less than 130 mL in the last 24 hours. Her Oliver catheter remains in place, could consider discontinuation but she is followed by urology. Seen today on 04/28/2025, patient is about the same, not much is happening over the last couple of days. Continues to have airleak continues to have chest tube on suction, continues to have small pneumothorax on chest x-ray, however clinically the patient is doing great, chest tube is not ready to be removed yet, she is achieving about 1000 cc on incentive spirometry, she is ambulating, continues to have Oliver catheter in place. As recommended by urology. Labs we re reviewed WBC count is 11 hemoglobin 12.2 electrolytes are normal renal profile is normal Progress note dated April 29, 2025. 69-year-old female who is postoperative day #6, status post right upper lobectomy, with mediastinal lymph node dissection. She has a history of non- small cell lung cancer, squamous cell, and is currently resting comfortably in room 354. She is on room air. She is not receiving any IV fluids. She does continue to have a leak, from the right sided chest tube. She otherwise is feeling well. Labs include a white count of 1.6, hemoglobin 12, hematocrit 36.2, platelet count 288,000. Sodium 137, potassium 4.4, chlorides 104, CO2 24, BUN 18, and creatinine 0.92. Glucose is 123, and calcium is 9.5. Chest x-ray shows no pneumothorax, which appears larger than the previous chest x-ray. Progress note dated April 30, 2025. 69-year-old female who is postoperative day #7, status post right upper lobectomy, with mediastinal lymph node dissection. She has a history of non- small cell lung cancer, squamous cell, and is seen today in room 354. She is currently on room air. She is not receiving any IV fluids. She has a right- sided chest tube, and there still is a leak, albeit smaller. Clinically, she is stable. She is awake and alert. No respiratory distress. White count is 12.8, hemoglobin 12.1, hematocrit 36.4, and platelet count is normal. Sodium 136, potassium 4.8, chlorides 105, CO2 23, BUN 25, creatinine 1.05. Calcium was 9.5, glucose is 129. Chest x-ray shows post right upper lobectomy changes, with decreased right apical pneumothorax. Chest tubes are noted. Progress note dated May 01, 2025. 69-year-old female seen again in room 354. She is postoperative day #8, status post right upper lobectomy, with mediastinal lymph node dissection. She has a history of non-small cell lung cancer, squamous cell type. Currently, the patient is on room air. Right chest tube remains in place. It is clamped. Clinically, she stable. She is awake and alert. No acute distress. Current labs include a white count of 13.8, hemoglobin 12.4, hematocrit 37.4, platelet count 305,000. Sodium 140, potassium 4.8, chlorides 106, CO2 27, BUN 18, crea tinine 0.94. Glucose is 107. Calcium 9.4. No pneumothorax seen on chest x- ray. Progress note dated May 02, 2025. 69-year-old female seen today in room 354. Chest tube has been removed. She is on room air. No IV fluids. According to cardiothoracic surgery, she likely will be discharged home. Today is postoperative day #9. She is has a history of a right upper lobectomy, with mediastinal lymph node dissection. Current labs include a white count of 10.6, hemoglobin 11.8, hematocrit 35.8, and a normal platelet count. Electrolyte profile and kidney function are both normal. Anion gap is normal. Glucose is 117. Calcium is 9.2. Chest x-ray shows a tiny right apical pneumothorax. Objective - Vital Signs Vital signs: Vital Signs Temp 97.8 F 05/02/25 08:09 Pulse 81 05/02/25 08:09 Resp 16 05/02/25 08:09 BP 105/72 05/02/25 08:09 Pulse Ox 98 05/02/25 08:09 FiO2 Intake & Output 0705/02/25 05/02/25 18:59 06:59 18:59 Intake Total 500 20 240 Output Total 985 Balance -485 20 240 Weight 70.3 kg Intake: IV 20 20 Invasive Line 3 20 20 Oral 480 240 Output: Chest Tube Drainage 10 Chest Tube Right Lateral 10 Chest Urine 975 Other: Voiding Method Toilet Toilet # Voids 3 - Exam No acute distress, oriented 3. Currently on room air. HEENT examination is grossly unremarkable. Mucous membranes are moist. No oral lesions. Neck supple. Full range of motion. No adenopathy thyromegaly or neck vein distention. Cardiovascular examination reveals regular rhythm rate. S1-S2 normal. No S3 or S4. No discernible murmur noted. Lungs reveal scattered mild rhonchi. No wheezes. No crackles. Breath sounds are equal. Abdomen soft bowel sounds are heard. No masses or tenderness. Extremities are intact. No cyanosis clubbing or edema. Skin is without rash or lesion. Neurologic examination is brief but nonfocal. - Labs CBC & Chem 7: 05/02/25 05:48 05/02/25 05:48 Labs: Abnormal Lab Results - Last 24 Hours (Table) 05/02/25 05/02/25 Range/Units 05:48 05:48 WBC 10.63 H (4.50-10.00) 10*3/uL RBC 3.87 L (4.10-5.20) 10*6/uL Hgb 11.8 L (12.0-15.0) g/dL Hct 35.8 L (37.2-46.3) % Immature Gran # 0.15 H (0.00-0.04) 10*3/uL Eosinophils # 0.36 H (0.04-0.35) 10*3/uL Glucose 117 H (74-99) mg/dL Assessment and Plan Assessment: Postoperative day #9, secondary to robotically assisted thoracoscopic right upper lobectomy with mediastinal lymph node dissection. History of moderately differentiated squamous cell carcinoma, diagnosed by robotic bronchoscopy, February 28, 2025. History of COPD. Chronic and ongoing nicotine dependence. History of seizure disorder. History of hypertension. History of hyperlipidemia. Plan: Plan dated April 29, 2025. The patient is seen today in room 354. She is resting comfortably in chair next to the hospital bed. She is not receiving any supplemental oxygen. She is not receiving any IV fluids. She is postoperative day #6, with a previous right upper lobectomy and mediastinal lymph node dissection. She has a history of squamous cell carcinoma of the lung. Labs, x-rays, and all medications are r eviewed. We will continue to follow make recommendations along the way. Overall prognosis remains guarded. Dictation was produced using [employer] software. Please excuse any grammatical, word or spelling errors. Plan dated April 30, 2025. The patient is seen today again in room 354. She remains on room air. She is resting comfortably in bed. She is in no distress. She denies any shortness of breath, cough, wheezing, chest tightness, or phlegm production. She denies any significant chest pain or chest discomfort. She is postoperative day #7. She still has a leak from the right sided chest tube. Labs, x-rays, and medications are reviewed. We will continue to follow, make recommendations along the way. Prognosis is guarded. Dictation was produced using [employer] software. Please excuse any grammatical, word or spelling errors. Plan dated May 01, 2025. The patient is seen today in room 354. She is doing relatively well. Her chest tube is clamped. She is on room air. She is not receiving any IV fluids. Hopefully, the chest tube can be removed later today, or at the latest tomorrow. The patient is anxious to be discharged home. Labs, x-rays, and all medications are reviewed. We will continue to follow. Prognosis is guarded. Dictation was produced using [employer] software. Please excuse any grammatical, word or spelling errors. Plan dated May 02, 2025. The patient is seen today again in room 354. She is on room air. No IV fluids. The right chest tube was finally removed. Chest x-ray is reviewed, shows a very tiny right apical pneumothorax. Labs, are reviewed. Everything seems to be in order. The patient will likely be discharged sometime later today. Will leave that up to the primary service. She will follow-up in the office with one of my partners. Additional recommendations and suggestions are forthcoming. Clinically, she looks well. She is sitting in the chair next to the hospital bed. No obvious respiratory distress or difficulty. Dictation was produced using [employer] software. Please excuse any grammatical, word or spelling errors. Time with Patient: Less than 30
== END 2025-05-02 10:49 | disposition home or self-care (01) | DRG 164 ==
LOC: 2ORMAIN 09:45 → 3SCARD 17:45
PROVIDERS: ADMIT Thoracic Surgery (Cardiothoracic Vascular Surgery); ATTEND Thoracic Surgery (Cardiothoracic Vascular Surgery)
PROC: 3E0T3BZ Introduction of Anesthetic Agent into Peripheral Nerves and Plexi, Percutaneous Approach (ICD-10-PCS; 2025-04-23)
PROC: 0BTC4ZZ Resection of Right Upper Lung Lobe, Percutaneous Endoscopic Approach (ICD-10-PCS; principal; 2025-04-23 11:55)
PROC: 8E0W4CZ Robotic Assisted Procedure of Trunk Region, Percutaneous Endoscopic Approach (ICD-10-PCS; principal; 2025-04-23 11:55)
PROC: 07B74ZZ Excision of Thorax Lymphatic, Percutaneous Endoscopic Approach (ICD-10-PCS; principal; 2025-04-23 11:55)
DX: C34.11 Malignant neoplasm of upper lobe, right bronchus or lung (principal); J93.82 Other air leak; J93.9 Pneumothorax, unspecified; J44.9 Chronic obstructive pulmonary disease, unspecified; G40.909 Epilepsy, unspecified, not intractable, without status epilepticus; I10 Essential (primary) hypertension; E78.5 Hyperlipidemia, unspecified; F17.290 Nicotine dependence, other tobacco product, uncomplicated; R33.0 Drug induced retention of urine; K59.00 Constipation, unspecified; T88.59XA Other complications of anesthesia, initial encounter; T41.1X5A Adverse effect of intravenous anesthetics, initial encounter; Y84.8 Other medical procedures as the cause of abnormal reaction of the patient, or of later complication, without mention of misadventure at the time of the procedure; Z79.82 Long term (current) use of aspirin; Z79.899 Other long term (current) drug therapy; Z82.49 Family history of ischemic heart disease and other diseases of the circulatory system
CPT/HCPCS: 64466; 71045; 71046; 80048; 85025; 85027; 88305; 88309; 94640